=== PATIENT | female | born 1970 | race Asian ===

== ENCOUNTER → 2017-11-23 | Outpatient (REF) | payer OTHER ==
[2017-11-23 14:58] LABS: LUTEINIZING HORMONE 33.1 mIU/mL
[2017-11-23 14:59] LABS: ESTRADIOL 450.7 PG/ML
[2017-11-23 15:03] LABS: FOLLICLE STIMULATING HORMONE 26.8 mIU/mL
== END ==
LOC: M LAB REF 12:22
DX: N95.1 Menopausal and female climacteric states (principal)

== ENCOUNTER → 2017-12-31 | Outpatient (REF) | payer OTHER ==
[2018-01-03 00:06] LABS: CK 1 (BB) 0 % (0); CK 2 (MB) 0 % (0-3); CK 3 (MM) 22 % (97-100); CK MACRO I PERCENT 78 % (Not Observed); CK MACRO II PERCENT 0 % (Not Observed); CK TOTAL 350 U/L (24-173)
== END ==
LOC: M LAB REF 10:09
DX: R74.8 Abnormal levels of other serum enzymes (principal)
CPT/HCPCS: 82552

== ENCOUNTER → 2018-02-09 | Outpatient (CLI) | payer OTHER ==
[2018-02-09 15:14] LABS: MYOGLOBIN SCREEN, URINE NEGATIVE (NEGATIVE)
[2018-02-09 15:33] LABS: ERYTHROCYTE SEDIMENTATION RATE 7 mm/hr (0-20)
[2018-02-09 15:47] LABS: C REACTIVE PROTEIN QUANTITATIV 0.35 MG/DL (0.00-0.30); CPK CREATINE PHOSPHOKINASE 351 U/L (26-192); MAGNESIUM LEVEL 1.8 MG/DL (1.8-2.4)
[2018-02-09 15:47] LABS: PHOSPHORUS LEVEL 3.3 MG/DL (2.5-4.9)
== END ==
LOC: M LAB 14:32
DX: M72.2 Plantar fascial fibromatosis (principal); E03.9 Hypothyroidism, unspecified; E78.00 Pure hypercholesterolemia, unspecified; E83.42 Hypomagnesemia; R74.8 Abnormal levels of other serum enzymes; E87.1 Hypo-osmolality and hyponatremia
CPT/HCPCS: 82550

== ENCOUNTER → 2018-02-14 | Outpatient (CLI) | payer OTHER ==
[2018-02-14 19:56] LABS: ANION GAP 8 MEQ/L (8-16); BLOOD UREA NITROGEN 13 MG/DL (7-18); CALCIUM LEVEL 8.3 MG/DL (8.5-10.1); CARBON DIOXIDE LEVEL 26 MEQ/L (21-32); CHLORIDE LEVEL 101 MEQ/L (98-107); CREATININE FOR GFR 0.79 MG/DL (0.55-1.30); GLOMERULAR FILTRATION RATE > 60.0 (>58); GLUCOSE, FASTING 160 MG/DL (70-100); NT-PRO BNP 132 PG/ML (<125); SODIUM LEVEL 135 MEQ/L (136-145)
[2018-02-14 20:52] LABS: POTASSIUM SERUM 4.6 MEQ/L (3.5-5.1)
== END ==
LOC: M WUC 16:06
DX: R06.00 Dyspnea, unspecified (principal)

== ENCOUNTER → 2018-03-04 | Outpatient (CLI) | payer OTHER | LOC: M RAD 13:04 | DX: R51 Headache (principal) | CPT/HCPCS: 70450 ==

== ENCOUNTER → 2018-03-04 | Outpatient (CLI) | payer OTHER ==
[2018-03-04 17:55] LABS: BASO # 0.1 10^3/uL (0.0-0.2); BASO % 1.1 % (0.0-1.0); EOS # 0.2 10^3/uL (0.0-0.50); EOS % 2.6 % (0.0-3.0); HEMATOCRIT 42.1 % (36.0-47.0); HEMOGLOBIN 13.6 g/dl (12.0-15.5); IMMATURE GRANULOCYTE % 0.3 % (0-3.0); LYMPH # 2.2 10^3/uL (1.5-4.5); LYMPH % 30.1 % (24.0-44.0); MEAN CORPUSCULAR HEMOGLOBIN 30.6 pg (27.0-33.0); MEAN CORPUSCULAR HGB CONC 32.3 g/dl (32.0-36.5); MEAN CORPUSCULAR VOLUME 94.8 fl (80.0-96.0); MONO # 0.6 10^3/uL (0.0-0.8); MONO % 8.5 % (0.0-5.0); NEUTROPHILS # 4.2 10^3/uL (1.8-7.7); NEUTROPHILS % 57.4 % (36.0-66.0); PLATELET COUNT, AUTOMATED 233 10^3/uL (150-450); RED BLOOD COUNT 4.44 10^6/uL (4.00-5.40); RED CELL DISTRIBUTION WIDTH 12.9 % (11.5-14.5); WHITE BLOOD COUNT 7.3 10^3/uL (4.0-10.0)
[2018-03-04 18:06] LABS: ALBUMIN 3.9 GM/DL (3.2-5.2); ALKALINE PHOSPHATASE 56 U/L (45-117); ALT/SGPT 22 U/L (12-78); ANION GAP 9 MEQ/L (8-16); AST/SGOT 25 U/L (7-37); BILIRUBIN,TOTAL 0.4 MG/DL (0.2-1.0); BLOOD UREA NITROGEN 12 MG/DL (7-18); CALCIUM LEVEL 8.8 MG/DL (8.5-10.1); CARBON DIOXIDE LEVEL 24 MEQ/L (21-32); CHLORIDE LEVEL 103 MEQ/L (98-107); CREATININE FOR GFR 0.66 MG/DL (0.55-1.30); GLOMERULAR FILTRATION RATE > 60.0 (>58); GLUCOSE, FASTING 219 MG/DL (70-100); MAGNESIUM LEVEL 1.9 MG/DL (1.8-2.4); POTASSIUM SERUM 5.1 MEQ/L (3.5-5.1); SODIUM LEVEL 136 MEQ/L (136-145); TOTAL PROTEIN 7.8 GM/DL (6.4-8.2)
== END ==
LOC: M WUC 12:02
DX: R06.02 Shortness of breath (principal)
CPT/HCPCS: 83735

== ENCOUNTER → 2018-03-12 | Outpatient (CLI) | payer OTHER ==
[2018-03-12 19:45] LABS: CPK CREATINE PHOSPHOKINASE 249 U/L (26-192)
[2018-03-12 19:45] LABS: MAGNESIUM LEVEL 1.9 MG/DL (1.8-2.4)
== END ==
LOC: M WUC 16:01
DX: R74.8 Abnormal levels of other serum enzymes (principal); E87.1 Hypo-osmolality and hyponatremia; E83.42 Hypomagnesemia
CPT/HCPCS: 82550

== ENCOUNTER → 2018-06-25 | Outpatient (CLI) | payer OTHER ==
[2018-06-25 17:00] LABS: ALT/SGPT 19 U/L (12-78); ANION GAP 9 MEQ/L (8-16); BLOOD UREA NITROGEN 10 MG/DL (7-18); CALCIUM LEVEL 8.9 MG/DL (8.5-10.1); CARBON DIOXIDE LEVEL 26 MEQ/L (21-32); CHLORIDE LEVEL 101 MEQ/L (98-107); CHOLESTEROL LEVEL 188 MG/DL (<200); CHOLESTEROL RISK RATIO 1.579 (<5); CPK CREATINE PHOSPHOKINASE 275 U/L (26-192); CREATININE FOR GFR 0.57 MG/DL (0.55-1.30); GLOMERULAR FILTRATION RATE > 60.0 (>58); GLUCOSE, FASTING 90 MG/DL (70-100); HDL CHOLESTEROL 119 MG/DL (>40); LDL CHOLESTEROL 60.8 MG/DL (<100); NON-HDL-C 69 MG/DL; POTASSIUM SERUM 4.8 MEQ/L (3.5-5.1); SODIUM LEVEL 136 MEQ/L (136-145); THYROID STIMULATING HORMONE 0.609 uIU/ML (0.358-3.740); TRIGLYCERIDES LEVEL 41 MG/DL (<150)
== END ==
LOC: M WUC 11:14
DX: E03.9 Hypothyroidism, unspecified (principal); E83.42 Hypomagnesemia; E78.00 Pure hypercholesterolemia, unspecified
CPT/HCPCS: 84460

== ENCOUNTER → 2018-09-23 | Outpatient (CLI) | payer OTHER ==
[2018-09-23 12:53] LABS: BASO # 0.1 10^3/uL (0.0-0.2); BASO % 1.9 % (0.0-1.0); EOS # 0.4 10^3/uL (0.0-0.50); EOS % 7.3 % (0.0-3.0); HEMATOCRIT 37.9 % (36.0-47.0); HEMOGLOBIN 12.7 g/dl (12.0-15.5); IMMATURE GRANULOCYTE % 0.2 % (0-3.0); LYMPH # 2.7 10^3/uL (1.5-4.5); LYMPH % 46.2 % (24.0-44.0); MEAN CORPUSCULAR HEMOGLOBIN 30.6 pg (27.0-33.0); MEAN CORPUSCULAR HGB CONC 33.5 g/dl (32.0-36.5); MEAN CORPUSCULAR VOLUME 91.3 fl (80.0-96.0); MONO # 0.6 10^3/uL (0.0-0.8); NEUTROPHILS # 1.9 10^3/uL (1.8-7.7); NEUTROPHILS % 33.4 % (36.0-66.0); PLATELET COUNT, AUTOMATED 333 10^3/uL (150-450); RED BLOOD COUNT 4.15 10^6/uL (4.00-5.40); WHITE BLOOD COUNT 5.7 10^3/uL (4.0-10.0)
[2018-09-23 13:04] LABS: ALT/SGPT 14 U/L (12-78); ANION GAP 5 MEQ/L (8-16); BLOOD UREA NITROGEN 9 MG/DL (7-18); CALCIUM LEVEL 8.4 MG/DL (8.5-10.1); CARBON DIOXIDE LEVEL 29 MEQ/L (21-32); CHLORIDE LEVEL 105 MEQ/L (98-107); CHOLESTEROL LEVEL 168 MG/DL (<200); CHOLESTEROL RISK RATIO 1.731 (<5); CPK CREATINE PHOSPHOKINASE 210 U/L (26-192); CREATININE FOR GFR 0.63 MG/DL (0.55-1.30); GLOMERULAR FILTRATION RATE > 60.0 (>58); GLUCOSE, FASTING 73 MG/DL (70-100); HDL CHOLESTEROL 97 MG/DL (>40); LDL CHOLESTEROL 64 MG/DL (<100); NON-HDL-C 71 MG/DL; POTASSIUM SERUM 4.6 MEQ/L (3.5-5.1); SODIUM LEVEL 139 MEQ/L (136-145); TRIGLYCERIDES LEVEL 33 MG/DL (<150)
[2018-09-23 17:15] LABS: APPEARANCE, URINE CLEAR (CLEAR); BACTERIA, URINE AUTO NEGATIVE (NEGATIVE); BILIRUBIN, URINE AUTO NEGATIVE (NEGATIVE); BLOOD, URINE BLOOD NEGATIVE (NEGATIVE); COLOR, URINE STRAW (YELLOW); GLUCOSE, URINE (UA) AUTO 2+ mg/dL (NEGATIVE); KETONE, URINE AUTO NEGATIVE (NEGATIVE); LEUKOCYTE ESTERASE, URINE AUTO NEGATIVE (NEGATIVE); NITRITE, URINE AUTO NEGATIVE (NEGATIVE); PROTEIN, URINE AUTO NEGATIVE (NEGATIVE); RBC, URINE AUTO 0 /HPF (0-3); SPECIFIC GRAVITY URINE AUTO 1.006 (1.002-1.035); SQUAMOUS EPITHELIAL CELL UR AU 0 /HPF (0-6); UROBILINOGEN, URINE AUTO 0.2 mg/dL (0.0-2.0); WBC, URINE AUTO 0 /HPF (0-3)
[2018-09-23 17:36] LABS: CREATININE, URINE 21.6 MG/DL; MALB URINE SIEMENS < 5.0 MG/L; MAU/CREAT RATIO 23.1 MCG/MG (0.0-30.0)
== END ==
LOC: M WUC 09:39
DX: I10 Essential (primary) hypertension (principal); E78.00 Pure hypercholesterolemia, unspecified; E10.311 Type 1 diabetes mellitus with unspecified diabetic retinopathy with macular edema; R74.8 Abnormal levels of other serum enzymes; E03.9 Hypothyroidism, unspecified
CPT/HCPCS: 84460

== ENCOUNTER → 2018-10-29 | Outpatient (REF) ==
[2018-10-30 09:39] LABS: RUBELLA IgG QUALITATIVE IMMUNE (IMMUNE)
[2018-10-31 08:17] LABS: MUMPS VIRUS IgG ANTIBODY >300.0 AU/mL (Immune >10.9); RUBEOLA IgG ANTIBODY >300.0 AU/mL (Immune >29.9)
== END ==
LOC: M LAB REF 17:40
PROVIDERS: ATTEND Pediatrics Pediatric Infectious Diseases
DX: Z00.00 Encounter for general adult medical examination without abnormal findings (principal)

== ENCOUNTER 2018-11-28 08:49 | Emergency (ER) | payer OTHER ==
[~2018-11-28] VITALS: Ht 152.4 cm; Wt 49.5 kg
[2018-11-28] MEDS ORDERED: TURM500C3 PO (08:59)
[2018-11-28] MEDS ORDERED: VITA100066 PO (08:59)
[2018-11-28] MEDS ORDERED: PHEN64.8 (08:59)
[2018-11-28] MEDS ORDERED: LEVO150T7 (08:59)
[2018-11-28] MEDS ORDERED: METO1TAB32 (08:59)
[2018-11-28] MEDS ORDERED: MAGN400C2 PO (08:59)
[2018-11-28] MEDS ORDERED: AMLO2.5T3 (08:59)
[2018-11-28] MEDS ORDERED: ROSU5TAB4 (08:59)
[2018-11-28] MEDS ORDERED: RAMI1CAP26 (08:59)
[2018-11-28] MEDS ORDERED: INSUHUMDS (08:59)
[2018-11-28 12:15] LABS: HEMATOCRIT 41.7 % (36.0-47.0); HEMOGLOBIN 13.9 g/dl (12.0-15.5); MEAN CORPUSCULAR HGB CONC 33.3 g/dl (32.0-36.5); MEAN CORPUSCULAR VOLUME 92.9 fl (80.0-96.0); PLATELET COUNT, AUTOMATED 269 10^3/uL (150-450); RED BLOOD COUNT 4.49 10^6/uL (4.00-5.40); WHITE BLOOD COUNT 7.4 10^3/uL (4.0-10.0)
[2018-11-28 12:51] LABS: BLOOD UREA NITROGEN 13 MG/DL (7-18); CALCIUM LEVEL 8.8 MG/DL (8.5-10.1); CARBON DIOXIDE LEVEL 27 MEQ/L (21-32); CHLORIDE LEVEL 102 MEQ/L (98-107); CREATININE FOR GFR 0.61 MG/DL (0.55-1.30); GLOMERULAR FILTRATION RATE > 60.0 (>58); GLUCOSE, FASTING 107 MG/DL (70-100); POTASSIUM SERUM 4.7 MEQ/L (3.5-5.1); SODIUM LEVEL 136 MEQ/L (136-145)
[2018-11-28] MEDS ORDERED: ISOVUE-370 76% 100ML VIAL (Q9967) As Ordered ONE (13:03)
[2018-11-28 13:46] VITALS: BP 150/89
[2018-11-28] MEDS ORDERED: AUGM875T28 PO (13:53)
--- NOTE | 2018-11-28 14:33 | REP ---
MAXILLOFACIAL CT WITH CONTRAST: HISTORY: Left facial swelling. CONTRAST: Isovue-370, 75 mL. COMPARISON: 08/17/2014 Mild mucosal thickening is present in the maxillary, right ethmoid, and right sphenoid sinuses. Minimal mucosal thickening is present in the frontal, left ethmoid, and left sphenoid sinuses. A retention cyst is present in the right maxillary sinus. Mucosal thickening involves the osteomeatal units. The middle and inferior nasal turbinates are partially paradoxical. There is veronica bullosa of the right middle nasal turbinate. There is mild deviation of the nasal septum to the left superiorly and to the right inferiorly. The superior nasal septum abuts the left middle nasal turbinate. The cribriform plate, medial coello of the orbits, and optic canals are intact. The carotid canals form a segment of the posterolateral coello of the sphenoid sinus. Calcifications are present in the right tonsil. This is secondary to previous inflammatory disease. The naso-, peng-, and hypopharynx otherwise are normal in appearance. The salivary glands are normal in size and density. Small lymph nodes less than 1 cm in size are present in the internal jugular chains, posterior triangles, submandibular and submental areas. There is flattening and irregularity of the left mandibular condyle. This is unchanged compared to the previous study. The right mandibular condyle is normal in appearance. IMPRESSION: 1. Sinus mucosal thickening, as described above. 2. Left mandibular condyle degenerative change, as described above. Electronically Signed by Ced Rico MD 11/28/2018 02:36 P
== END 2018-11-28 14:04 | disposition home or self-care (01) ==
LOC: M ED 08:49
DX: J01.90 Acute sinusitis, unspecified (principal); E11.9 Type 2 diabetes mellitus without complications; I10 Essential (primary) hypertension; Z79.4 Long term (current) use of insulin; Z79.899 Other long term (current) drug therapy
CPT/HCPCS: 70487; 80048; 85027; 99284; Q9967

== ENCOUNTER → 2018-12-04 | Outpatient (CLI) | payer OTHER ==
[~2018-12-04] MED LIST: AMLO2.5T3; AUGM875T28 PO; INSUHUMDS; LEVO150T7; MAGN400C2 PO; METO1TAB32; PHEN64.8; RAMI1CAP26; ROSU5TAB4; TURM500C3 PO; VITA100066 PO
--- NOTE | 2018-12-04 17:45 | REP ---
CT of the chest without IV contrast: There are no comparison chest CTs. Comparison is made to the visualized lung rudolph and abdominal CT dated 03/29/2015. There is diffuse bilateral interstitial coarsening as a distinct change from the comparison study. This could represent acute, subacute or chronic diffuse interstitial lung disease. There are no focal infiltrates. No definite masses or nodules are identified although small nodules could be obscured. There are no pleural effusions. No definite mediastinal adenopathy is identified. The study is insensitive for hilar adenopathy in the absence of IV contrast. No axillary adenopathy is identified. The unenhanced thoracic aorta is unremarkable. Cardiac size is upper normal. There is no pericardial effusion. The visualized unenhanced upper abdominal structures are unremarkable. No adrenal mass is identified. Impression: The diffuse bilateral interstitial coarsening as a change from the visualized lung rudolph on the abdomen CT of 03/29/2015. This could represent acute, subacute or idiopathic interstitial lung disease. Depending on clinical course biopsy may be altered mentally required. Electronically Signed by Jus Ward MD 12/04/2018 05:37 P
== END ==
LOC: M RAD 15:27
PROVIDERS: ATTEND Internal Medicine Pulmonary Disease
DX: R06.00 Dyspnea, unspecified (principal); R91.8 Other nonspecific abnormal finding of lung field

== ENCOUNTER → 2018-12-09 | Outpatient (CLI) | payer OTHER ==
[2018-12-12 00:06] LABS: ANGIOTENSIN 1 CONVERTING ENZYM 7 U/L (14-82); CYCLIC CITRULLINATED PEPTIDE 4 units (0-19)
[2018-12-13 00:08] LABS: ANCA-ATYPICAL <1:20 titer (Neg:<1:20); ANTI DOUBLE STRAND-DNA AB 1 IU/mL (0-9); ANTINUCLEAR ANTIBODIES DIRECT Positive (Negative); CYTOPLASMIC NEUTROP AB ANCA-C <1:20 titer (Neg:<1:20); PERINUCLEAR AB ANCA-P <1:20 titer (Neg:<1:20); RNP ANTIBODIES <0.2 AI (0.0-0.9); SJOGREN'S ANTI SS-A 0.6 AI (0.0-0.9); SJOGREN'S ANTI SS-B <0.2 AI (0.0-0.9); SMITH ANTIBODIES <0.2 AI (0.0-0.9)
== END ==
LOC: M SMT 15:29
PROVIDERS: ATTEND Internal Medicine Pulmonary Disease
DX: R91.8 Other nonspecific abnormal finding of lung field (principal)

== ENCOUNTER → 2019-02-22 | Outpatient (CLI) | payer OTHER ==
[2019-02-22 18:00] LABS: HEMATOCRIT 39.5 % (36.0-47.0); MEAN CORPUSCULAR HEMOGLOBIN 30.8 pg (27.0-33.0); MEAN CORPUSCULAR HGB CONC 32.9 g/dl (32.0-36.5); MEAN CORPUSCULAR VOLUME 93.6 fl (80.0-96.0); PLATELET COUNT, AUTOMATED 232 10^3/uL (150-450); RED BLOOD COUNT 4.22 10^6/uL (4.00-5.40); WHITE BLOOD COUNT 6.7 10^3/uL (4.0-10.0)
[2019-02-22 18:03] LABS: APPEARANCE, URINE CLEAR (CLEAR); BACTERIA, URINE AUTO NEGATIVE (NEGATIVE); BILIRUBIN, URINE AUTO NEGATIVE (NEGATIVE); BLOOD, URINE BLOOD NEGATIVE (NEGATIVE); COLOR, URINE COLORLESS (YELLOW); GLUCOSE, URINE (UA) AUTO NEGATIVE (NEGATIVE); KETONE, URINE AUTO NEGATIVE (NEGATIVE); LEUKOCYTE ESTERASE, URINE AUTO NEGATIVE (NEGATIVE); NITRITE, URINE AUTO NEGATIVE (NEGATIVE); PROTEIN, URINE AUTO NEGATIVE (NEGATIVE); RBC, URINE AUTO 0 /HPF (0-3); SPECIFIC GRAVITY URINE AUTO 1.002 (1.002-1.035); SQUAMOUS EPITHELIAL CELL UR AU 0 /HPF (0-6); UROBILINOGEN, URINE AUTO 0.2 mg/dL (0.0-2.0); WBC, URINE AUTO 0 /HPF (0-3)
[2019-02-22 18:05] LABS: ALBUMIN 3.8 GM/DL (3.2-5.2); ALT/SGPT 14 U/L (12-78); BILIRUBIN,DIRECT < 0.1 MG/DL (0.0-0.2); BILIRUBIN,TOTAL 0.3 MG/DL (0.2-1.0); CPK CREATINE PHOSPHOKINASE 202 U/L (26-192); MAGNESIUM LEVEL 1.9 MG/DL (1.8-2.4); TOTAL PROTEIN 7.6 GM/DL (6.4-8.2)
[2019-02-22 18:20] LABS: CREATININE, URINE < 13.0 MG/DL; MALB URINE SIEMENS < 5.0 MG/L
== END ==
LOC: M WUC 13:10
PROVIDERS: ATTEND Internal Medicine
DX: Z00.00 Encounter for general adult medical examination without abnormal findings (principal); Z13.89 Encounter for screening for other disorder; E03.9 Hypothyroidism, unspecified

== ENCOUNTER → 2019-02-28 | Outpatient (CLI) | payer OTHER ==
[~2019-02-28] MED LIST changes: -AMLO2.5T3; +AMLO2.5T3 PO; -LEVO150T7; +LEVO150T7 PO; +LOES1TAB10 PO; -METO1TAB32; +METO1TAB32 PO; -PHEN64.8; +PHEN64.8 PO; -RAMI1CAP26; +RAMI1CAP26 PO; -ROSU5TAB4; +ROSU5TAB4 PO; +VITA500054 PO
[2019-02-28 13:32] LABS: ABG BASE EXCESS 1.8 (-2.0-2.0); ABG HCO3 25.4 MEQ/L (22.0-26.0); ABG PARTIAL PRESSURE CO2 36.6 mmHg (35.0-45.0); ABG PARTIAL PRESSURE O2 144.4 mmHg (75.0-100.0); ABG STANDARD HCO3 26.1 MEQ/L (22.0-26.0); ABG TOTAL CO2 26.6 MEQ/L (22.0-29.0)
[2019-02-28 13:35] LABS: HEMATOCRIT 40.5 % (36.0-47.0); HEMOGLOBIN 13.2 g/dl (12.0-15.5); MEAN CORPUSCULAR HEMOGLOBIN 30.5 pg (27.0-33.0); MEAN CORPUSCULAR HGB CONC 32.6 g/dl (32.0-36.5); MEAN CORPUSCULAR VOLUME 93.5 fl (80.0-96.0); PLATELET COUNT, AUTOMATED 245 10^3/uL (150-450); RED BLOOD COUNT 4.33 10^6/uL (4.00-5.40); WHITE BLOOD COUNT 7.3 10^3/uL (4.0-10.0)
[2019-02-28 13:46] LABS: INR 0.93; PARTIAL THROMBOPLASTIN TIME 29.2 SECONDS (25.4-37.6); PROTHROMBIN TIME 12.6 SECONDS (12.1-14.4)
[2019-02-28 14:04] LABS: BLOOD UREA NITROGEN 11 MG/DL (7-18); CALCIUM LEVEL 8.6 MG/DL (8.5-10.1); CARBON DIOXIDE LEVEL 29 MEQ/L (21-32); CHLORIDE LEVEL 102 MEQ/L (98-107); CREATININE FOR GFR 0.59 MG/DL (0.55-1.30); GLOMERULAR FILTRATION RATE > 60.0 (>58); GLUCOSE, FASTING 116 MG/DL (70-100); POTASSIUM SERUM 3.8 MEQ/L (3.5-5.1); SODIUM LEVEL 135 MEQ/L (136-145)
--- NOTE | 2019-02-28 16:24 | REP ---
REASON FOR EXAM: Dyspnea. COMPARISON EXAM: 02/13/[address] of the chest 12/04/2018 showed abnormal lug rudolph. There is a diffuse increase in the interstitial markings throughout the lung rudolph and in a fashion essentially unchanged from the prior plain film exam. The cardiomediastinal silhouette is unchanged. There is no cardiomegaly. There are no pleural effusions. There is no change in the osseous structures. IMPRESSION:Abnormal but stable appearing lung field findings as described above. Electronically Signed by Eddi Mejía DO 03/06/2019 02:36 P
--- NOTE | 2019-02-28 23:57 | ECGEPIP ---
Stationary ECG Study [facility] Test Date: 2019-02-28 Pat Name: JAKE PULIDO Department: Room: - Gender: F Educational Specialist: : 1970 Requested By: Carlos Enrique White Order Number: [id number] Reading MD: Thomas King Measurements Intervals [place] Rate: 75 P: 48 [place]: 156 QRS: 19 QRSD: 94 T: 29 QT: 355 QTc: 396 Interpretive Statements SINUS RHYTHM NO PRIOR TRACING IN THE SYSTEM Electronically Signed On 02-28-2019 23:57:10 EDT by Thomas King
== END ==
LOC: M ADMPAT 12:53
PROVIDERS: ATTEND Thoracic Surgery (Cardiothoracic Vascular Surgery)
DX: R91.1 Solitary pulmonary nodule (principal)

== ENCOUNTER → 2019-03-07 | Outpatient (CLI) | payer OTHER ==
[~2019-03-07] MED LIST changes: +E-Z-PAQUE 96% w/w SUSP 176GM BTL As Ordered ONE
--- NOTE | 2019-03-07 17:26 | REP ---
Esophagram The procedure was performed under the direct supervision of Dr. Ahuja. The images were reviewed with Dr. Ahuja. A single view PA chest x-ray is submitted as a production team manager film. There is no change compared to a previous chest x-ray performed on 02/28/2019. Liquid barium and gas producing granules were given in the erect position as well as liquid barium in the prone oblique positions in order to perform a double contrast esophagram examination. The oral and pharyngeal stages of deglutition are unremarkable. During esophageal transport the primary peristaltic wave is interrupted in the upper thoracic esophagus. The esophagus is dilated. There is free flow of contrast into the stomach. The GE junction is normal in appearance. There is gastroesophageal reflux demonstrated to above the level of the marco. Impression: 1. During esophageal transport the primary peristaltic wave interrupted in the upper thoracic esophagus. 2. The esophagus is dilated. There is free flow of contrast into the stomach. The GE junction is normal in appearance. 3. There is gastroesophageal reflux demonstrated to above the level of the marco. 0.5 minutes of fluoro time was utilized for this procedure. Reviewed by PARVIN Hunter 03/07/2019 01:24 P Electronically Signed by Perez Ahuja MD 03/07/2019 05:17 P
== END ==
LOC: M RAD 09:52
PROVIDERS: ATTEND Thoracic Surgery (Cardiothoracic Vascular Surgery)
DX: K22.0 Achalasia of cardia (principal); K21.9 Gastro-esophageal reflux disease without esophagitis

== ENCOUNTER → 2019-05-20 | Outpatient (CLI) | payer OTHER ==
[~2019-05-20] MED LIST changes: -E-Z-PAQUE 96% w/w SUSP 176GM BTL As Ordered ONE; -ROSU5TAB4 PO; +ROSU5TAB5 PO
--- NOTE | 2019-05-20 08:15 | REP ---
Clinical: Interstitial pulmonary disease. Technique: Axial noncontrast high-resolution images from the thoracic inlet to the upper abdomen obtained during inspiration and expiration along with coronal and sagittal re-formations. Comparison: 03/29/2015. Findings: There is evidence for moderate diffuse interstitial coarsening throughout the bilateral lung rudolph with a subpleural predominance and changes to suggest early subpleural fibrosis. Expiration images demonstrate small areas of subpleural atelectasis primarily in the bilateral lung bases without evidence for air trapping. No obvious focal consolidation or mass lesion is appreciated. The tracheobronchial tree is patent. There is continued evidence for a moderately patulous esophagus and these findings together may be related to Systemic Sclerosis interstitial lung disease (SSc-ILD). No effusion. No pneumothorax. Evaluation for adenopathy is significantly limited due to the lack of contrast. The heart and pericardium are grossly normal. No pericardial effusion is identified. The thoracic aorta is without aneurysm. Surrounding musculoskeletal structures are intact. Impression: 1. Diffusely coarsened interstitial markings with early subpleural predominance and possible elements of fibrosis. A patulous esophagus is also identified together these findings suggest the possibility of SSc-ILD. Pulmonary consultation is recommended. Biopsy may be warranted. Electronically Signed by Giovanni Grullon MD 05/20/2019 08:08 A
== END ==
LOC: M RAD 07:33
PROVIDERS: ATTEND Thoracic Surgery (Cardiothoracic Vascular Surgery)
DX: J84.9 Interstitial pulmonary disease, unspecified (principal); R91.8 Other nonspecific abnormal finding of lung field

== ENCOUNTER → 2019-07-31 | Outpatient (CLI) | payer OTHER ==
[2019-08-02 14:07] LABS: ANTI DOUBLE STRAND-DNA AB <1 IU/mL (0-9); ANTI SCLERODERMA ANTIBODIES <0.2 AI (0.0-0.9); ANTINUCLEAR ANTIBODIES DIRECT Positive (Negative); RNP ANTIBODIES <0.2 AI (0.0-0.9); SJOGREN'S ANTI SS-A 0.4 AI (0.0-0.9); SJOGREN'S ANTI SS-B <0.2 AI (0.0-0.9); SMITH ANTIBODIES <0.2 AI (0.0-0.9)
== END ==
LOC: M WUC 16:29
PROVIDERS: ATTEND Internal Medicine Gastroenterology
DX: K22.4 Dyskinesia of esophagus (principal); K22.70 Barrett's esophagus without dysplasia; K44.9 Diaphragmatic hernia without obstruction or gangrene

== ENCOUNTER → 2019-08-07 | Outpatient (CLI) | payer OTHER ==
[~2019-08-07] MED LIST changes: +PERCOCET PO
--- NOTE | 2019-08-28 16:30 | REP ---
CT chest without contrast: High-resolution study. Repeat dictation. History: Interstitial pulmonary disease. Inspiration and expiration imaging requested supine and prone imaging. Comparison CT study is from May 20, 2019. Technique: Prone and supine high resolution CT imaging is acquired. Supine imaging is performed at both inspiration and expiration. CT findings: Somewhat dilated air filled esophagus is again seen. No mediastinal mass or adenopathy is observed. Minimal vascular calcification is noted. No adrenal lesion is seen. The visualized upper abdominal structures are unremarkable. There is diffuse interstitial fibrosis pattern in the lung rudolph with areas of subpleural interstitial fibrosis in the upper lobe anterolaterally and in the lower lobes posterolaterally on both sides essentially unchanged from the May 20, 2019 study. With expiration imaging there is no regional or segmental area of significant air trapping. The subpleural changes in the lower lobes are not due to dependent vascular changes. In other words, the persist with prone imaging. No pulmonary mass lesion is seen. No bony destructive lesion is appreciated. No endobronchial abnormality is seen. Impression: Diffuse interstitial lung disease with subpleural areas of fibrosis in the upper lobes and lower lobes bilaterally. The changes are not dependent. No significant air trapping is seen. Electronically Signed by Perez Ahuja MD 08/28/2019 05:15 P
== END ==
LOC: M RAD 16:12
PROVIDERS: ATTEND Thoracic Surgery (Cardiothoracic Vascular Surgery)
DX: J84.10 Pulmonary fibrosis, unspecified (principal)

== ENCOUNTER → 2019-08-08 | Outpatient (CLI) | payer OTHER ==
[2019-08-08 13:46] LABS: HEMATOCRIT 40.3 % (36.0-47.0); HEMOGLOBIN 13.4 g/dl (12.0-15.5); MEAN CORPUSCULAR HEMOGLOBIN 31.4 pg (27.0-33.0); MEAN CORPUSCULAR HGB CONC 33.3 g/dl (32.0-36.5); MEAN CORPUSCULAR VOLUME 94.4 fl (80.0-96.0); PLATELET COUNT, AUTOMATED 262 10^3/uL (150-450); RED BLOOD COUNT 4.27 10^6/uL (4.00-5.40); WHITE BLOOD COUNT 6.1 10^3/uL (4.0-10.0)
[2019-08-08 13:51] LABS: APPEARANCE, URINE CLEAR (CLEAR); BACTERIA, URINE AUTO NEGATIVE (NEGATIVE); BILIRUBIN, URINE AUTO NEGATIVE (NEGATIVE); BLOOD, URINE BLOOD 2+ (NEGATIVE); COLOR, URINE COLORLESS (YELLOW); GLUCOSE, URINE (UA) AUTO NEGATIVE (NEGATIVE); KETONE, URINE AUTO NEGATIVE (NEGATIVE); LEUKOCYTE ESTERASE, URINE AUTO NEGATIVE (NEGATIVE); MUCUS, URINE SMALL (NEGATIVE); NITRITE, URINE AUTO NEGATIVE (NEGATIVE); PROTEIN, URINE AUTO NEGATIVE (NEGATIVE); RBC, URINE AUTO 0 /HPF (0-3); SPECIFIC GRAVITY URINE AUTO 1.001 (1.002-1.035); SQUAMOUS EPITHELIAL CELL UR AU 1 /HPF (0-6); UROBILINOGEN, URINE AUTO 0.2 mg/dL (0.0-2.0); WBC, URINE AUTO 0 /HPF (0-3)
[2019-08-08 14:00] LABS: INR 1.06; PROTHROMBIN TIME 13.5 SECONDS (11.8-14.0)
[2019-08-08 14:01] LABS: PARTIAL THROMBOPLASTIN TIME 28.2 SECONDS (25.0-38.4)
[2019-08-08 14:04] LABS: BLOOD UREA NITROGEN 6 MG/DL (7-18); CARBON DIOXIDE LEVEL 28 MEQ/L (21-32); CHLORIDE LEVEL 102 MEQ/L (98-107); CREATININE FOR GFR 0.61 MG/DL (0.55-1.30); GLOMERULAR FILTRATION RATE > 60.0 (>58); GLUCOSE, FASTING 80 MG/DL (70-100); POTASSIUM SERUM 3.4 MEQ/L (3.5-5.1); SODIUM LEVEL 136 MEQ/L (136-145)
[2019-08-08 14:15] LABS: ABG BASE EXCESS 0.6 (-2.0-2.0); ABG HCO3 24.5 MEQ/L (22.0-26.0); ABG O2 SATURATION 98.4 % (95.0-99.0); ABG PARTIAL PRESSURE CO2 36.9 mmHg (35.0-45.0); ABG PARTIAL PRESSURE O2 126.3 mmHg (75.0-100.0); ABG STANDARD HCO3 25.1 MEQ/L (22.0-26.0); ABG TOTAL CO2 25.6 MEQ/L (22.0-29.0)
--- NOTE | 2019-08-08 15:24 | ECGEPIP ---
[facility] Test Date: 2019-08-08 Pat Name: JAKE PULIDO Department: Room: - Gender: Female [employer] Kil[employer] Operator: DEBBIE : 1970 Requested By: Carlos Enrique White Order Number: [id number] Reading MD: Emma Redd Measurements Intervals [place] Rate: 68 P: 49 [place]: 154 QRS: 21 QRSD: 96 T: 14 QT: 390 QTc: 415 Interpretive Statements SINUS RHYTHM sIMILAR TO 02/28/19 Electronically Signed on 08-08-2019 15:24:20 EDT by Emma Redd
--- NOTE | 2019-08-08 16:47 | REP ---
Chest x-ray: Two views. History: Interstitial lung disease. Comparison chest x-ray: February 28, 2019. Comparison chest CT study August 07, 2019. Findings: Interstitial markings are diffusely prominent as seen on the previous day's chest CT. Cardiomediastinal silhouette is unremarkable. No focal infiltrate is seen. Heart size is borderline. Cardiothoracic ratio is 52.3%. No pleural effusion is seen. Impression: Diffuse interstitial lung disease. Electronically Signed by Perez Ahuja MD 08/08/2019 04:38 P
== END ==
LOC: M ADMPAT 13:01
PROVIDERS: ATTEND Thoracic Surgery (Cardiothoracic Vascular Surgery)
DX: J84.9 Interstitial pulmonary disease, unspecified (principal)

== ENCOUNTER 2019-08-12 06:46 | Inpatient (IN) | payer OTHER ==
[2019-08-08 13:38] VITALS: BP 180/84
[~2019-08-12] VITALS: Ht 149.9 cm; Wt 50.6 kg
[2019-08-12] VITALS (19 sets, daily range): BP systolic 96–153; BP diastolic 44–76
[~2019-08-12 06:46] MED LIST changes: -PERCOCET PO
[2019-08-12] MEDS ORDERED: PROPOFOL 200 MG/20 ML VIAL As Ordered ONE (07:10)
[2019-08-12] MEDS ORDERED: ROCURONIUM BROMIDE 50 MG/5 ML VIAL As Ordered ONE ×3 (07:10→12:20)
[2019-08-12] MEDS ORDERED: LIDOCAINE 2% INJ 100 MG/5 ML SDV (FOR ANES.) As Ordered ONE (07:10)
[2019-08-12] MEDS ORDERED: ONDANSETRON 4MG/2ML VIAL (J2405) As Ordered ONE (07:10)
[2019-08-12] MEDS ORDERED: dexameTHASONE 4 MG/ML 1ML VIAL (J1100) As Ordered ONE (07:10)
[2019-08-12] MEDS ORDERED: fentaNYL 250 MCG/5 ML INJECTION (J3010) As Ordered ONE (07:16)
[2019-08-12] MEDS ORDERED: ceFAZolin SOD 2 GM in IV 1 EA IV ONE (07:45)
[2019-08-12] MEDS ORDERED: MUPIROCIN 2% OINT 22 GM TUBE TOP ONE (07:45)
[2019-08-12] MEDS ORDERED: fentaNYL 100 MCG/2 ML INJECTION (J3010) As Ordered ONE (08:57)
[2019-08-12] MEDS ORDERED: MIDAZOLAM INJ 2 MG/2 ML VIAL (J2250) As Ordered ONE (08:57)
[2019-08-12] MEDS ORDERED: BUPIVACAINE HCL 0.25% 30 ML VIAL As Ordered ONE (09:45)
[2019-08-12] MEDS ORDERED: CETACAINE SPRAY 5GM As Ordered ONE ×3 (09:49→14:19)
[2019-08-12] MEDS ORDERED: BUPIVACAINE HCL 0.5% 10 ML VIAL As Ordered ONE (09:49)
[2019-08-12] MEDS ORDERED: BUPIVACAINE LIPOSOME/PF 1.3% 20ML VIAL (13.3MG/ML)(EXPAREL)(C9290 PER1MG) As Ordered ONE (09:49)
[2019-08-12] MEDS ORDERED: WALLBOXKEY XX PRN (10:00)
[2019-08-12] MEDS ORDERED: ONDANSETRON 4MG/2ML VIAL (J2405) IV PRN ×3 (10:00→14:00)
[2019-08-12] MEDS ORDERED: EPIDURAL/PCA KEYS XX PRN (10:00)
[2019-08-12] MEDS ORDERED: METOCLOPRAMIDE INJ 10MG/2ML VIAL (J2765) IV PRN (10:00)
[2019-08-12] MEDS ORDERED: NALOXONE INJ 0.4 MG/1 ML VIAL (J2310) IV PRN (10:00)
[2019-08-12] MEDS ORDERED: diphenhydrAMINE INJ 50MG/ML VIAL (J1200) IV PRN (10:00)
[2019-08-12] MEDS ORDERED: MIDAZOLAM INJ 2 MG/2 ML VIAL (J2250) IV ONE (10:30)
[2019-08-12] MEDS ORDERED: fentaNYL 100 MCG/2 ML INJECTION (J3010) IV ONE (10:30)
[2019-08-12] MEDS ORDERED: SUGAMMADEX SODIUM 500 MG/5 ML VIAL (BRIDION) As Ordered ONE (12:15)
[2019-08-12] MEDS ORDERED: GLYCOPYRROLATE INJ 0.2 MG/ML 2 ML VIAL As Ordered ONE (12:48)
[2019-08-12] MEDS ORDERED: KETOROLAC 60 MG/2 ML VIAL (J1885) As Ordered ONE (13:05)
[2019-08-12] MEDS ORDERED: ACETAMINOPHEN 1000MG 100ML IV BTL (OFIRMEV) (J0131 PER 10MG) As Ordered ONE (13:08)
[2019-08-12] MEDS ORDERED: BISACODYL 10 MG SUPP PR PRN (13:30)
[2019-08-12] MEDS ORDERED: LEVALBUTEROL 1.25 MG/0.5 ML CONCENTRATE NEB NEB PRN (13:30)
[2019-08-12] MEDS ORDERED: ACETAMINOPHEN TAB 650MG DOSE (2X325MG) PO PRN (13:30)
[2019-08-12 13:53] LABS: ABG BASE EXCESS 0.4 (-2.0-2.0); ABG HCO3 26.5 MEQ/L (22.0-26.0); ABG O2 SATURATION 99.3 % (95.0-99.0); ABG PARTIAL PRESSURE CO2 48.6 mmHg (35.0-45.0); ABG PARTIAL PRESSURE O2 181.5 mmHg (75.0-100.0); ABG STANDARD HCO3 24.9 MEQ/L (22.0-26.0); ABG pH (ARTERIAL) 7.355 UNITS (7.350-7.450)
[2019-08-12 13:57] LABS: BASO % 0.4 % (0.0-1.0); EOS # 0.1 10^3/uL (0.0-0.5); EOS % 0.6 % (0.0-3.0); HEMATOCRIT 38.2 % (36.0-47.0); HEMOGLOBIN 12.9 g/dl (12.0-15.5); LYMPH # 0.9 10^3/uL (1.5-5.0); LYMPH % 8.4 % (24.0-44.0); MEAN CORPUSCULAR HEMOGLOBIN 31.5 pg (27.0-33.0); MEAN CORPUSCULAR HGB CONC 33.8 g/dl (32.0-36.5); MEAN CORPUSCULAR VOLUME 93.4 fl (80.0-96.0); MONO # 0.2 10^3/uL (0.0-0.8); MONO % 1.9 % (0.0-5.0); NEUTROPHILS # 9.3 10^3/uL (1.5-8.5); NEUTROPHILS % 88.2 % (36.0-66.0); PLATELET COUNT, AUTOMATED 239 10^3/uL (150-450); RED BLOOD COUNT 4.09 10^6/uL (4.00-5.40); WHITE BLOOD COUNT 10.6 10^3/uL (4.0-10.0)
[2019-08-12] MEDS ORDERED: DEXTROSE 50% 50 ML SYRINGE IV PRN (14:00)
[2019-08-12] MEDS ORDERED: GLUCOSE 4 GM CHEW TABLET PO PRN (14:00)
[2019-08-12] MEDS ORDERED: LR 1,000 ML IV SCH (14:00)
[2019-08-12] MEDS ORDERED: HumaLOG INSULIN (NovoLOG) PER UNIT SC SCH (14:00)
[2019-08-12] MEDS ORDERED: GLUCAGON FOR INJ 1 MG VIAL (J1610) SC PRN (14:00)
[2019-08-12] MEDS: LEVALBUTEROL 1.25 MG/0.5 ML CONCENTRATE NEB NEB SCH ×2 (14:00→20:34)
[2019-08-12] MEDS: fentaNYL 100 MCG/2 ML INJECTION (J3010) IV PRN ×2 (14:05→14:15)
[2019-08-12] MEDS: KCL 20MEQ IN D5/NS 1000ML 1,000 ML IV SCH (14:10)
[2019-08-12 14:26] LABS: BLOOD UREA NITROGEN 7 MG/DL (7-18); CALCIUM LEVEL 8.4 MG/DL (8.5-10.1); CARBON DIOXIDE LEVEL 29 MEQ/L (21-32); CHLORIDE LEVEL 100 MEQ/L (98-107); CREATININE FOR GFR 0.61 MG/DL (0.55-1.30); GLOMERULAR FILTRATION RATE > 60.0 (>58); GLUCOSE, FASTING 223 MG/DL (70-100); POTASSIUM SERUM 4.7 MEQ/L (3.5-5.1); SODIUM LEVEL 134 MEQ/L (136-145)
--- NOTE | 2019-08-12 14:26 | RO ---
DATE OF PROCEDURE: 08/12/2019 PREPROCEDURE DIAGNOSIS: Interstitial lung disease. POSTPROCEDURE DIAGNOSIS: Interstitial lung disease. PROCEDURE: Triple wedge resection of right middle, right lower and right upper lobe with video-assisted thoracoscopic surgery (VATS) technique. Bronchoscopy. Five level rib block. SURGEON: Carlos Enriqeu Lam MD ASBESTOS SHINGLE ROOFER: ANESTHESIA: FINDINGS: The right lower lobe had a particularly impressive cobblestone appearance. A portion of the middle lobe was also the same. Upper lobe was less, cobblestone was still present. It was a difficult intubation and we used bronchial block rather than a double lumen tube. PROCEDURE: Under satisfactory single lumen tube endotracheal intubation, bronchoscope was passed into the tracheobronchial tree. She had normal bronchial segmental anatomy. She had high takeoff of the right upper lobe from the right mainstem bronchus. A port incision in the mid axillary line, the approximate sixth intercostal space was undertaken and a port placed under insufflation. There were no adhesions to the chest wall. The fissures were complete and after inspecting the lung, two other ports were placed. I placed an epigastric but I could not get above the diaphragm to safely place the port. The lower lobe was first visualized and the costophrenic angle portion was seized and wedge resection done with FANTA [place] stapler. The same was done likewise from the middle lobe and the upper lobe. The specimens were split and each lobe was sent for bacteriology including aerobic, anaerobic, fungal and TB. The remainder were sent for pathologic microscopy. After achieving adequate hemostasis a #24 chest tube was placed apically and anteriorly. The incisions were closed with running #0 Vicryl suture for the extrathoracic muscles, #3-0 Vicryl suture for the subcutaneous tissue and #4-0 Monocryl subcutaneous tissue sutures for the skin. Likewise, the epigastric incision was closed in the same fashion. A five level rib block was performed with Exparel. The patient tolerated the procedure well and left the operating room in satisfactory condition for the recovery room.
[2019-08-12] MEDS: FENTANYL/BUPIVACAINE/NACL BAG 250 ML EPIDURAL SCH (15:35)
--- NOTE | 2019-08-12 15:49 | REP ---
Single view chest: 08/12/2019. Indication: Interstitial lung disease. Comparison: 08/08/2019. Findings: There is been interval placement of a right-sided chest tube. There is no pleural effusion or pneumothorax. Interstitial markings are more prominent. The cardiac silhouette is at the upper limits of normal. Patchy bilateral opacities are present which appear within the air spaces and likely represent focal pneumonitis or infection. Impression: Interval placement of a right-sided chest tube without pneumothorax. Increased interstitial markings suggestive of pulmonary edema as well as possible superimposed pneumonitis/pneumonia. Electronically Signed by Luís Edwards DO 08/12/2019 03:42 P
[2019-08-12] MEDS: HumaLOG INSULIN (NovoLOG) PER UNIT SC SCH (18:00)
[2019-08-12] MEDS: KETOROLAC 30 MG/ML VIAL (J1885) IV SCH (18:40)
[2019-08-12] MEDS: HEPARIN SOD (PORCINE) 5000 UNITS/ML VIAL SC SCH (21:57)
[2019-08-12] MEDS: DOCUSATE SODIUM 100 MG CAP PO SCH (21:57)
[2019-08-12] MEDS ORDERED: INFLUENZA QUADRIVALENT PF VACCINE 0.5ML SYRINGE (90686) IM SCH (23:15)
[2019-08-13] VITALS (14 sets, daily range): BP systolic 96–150; BP diastolic 45–90
[2019-08-13] MEDS: LEVALBUTEROL 1.25 MG/0.5 ML CONCENTRATE NEB NEB SCH ×4 (01:53→20:16)
[2019-08-13] MEDS: KETOROLAC 30 MG/ML VIAL (J1885) IV SCH ×4 (02:07→18:06)
[2019-08-13] MEDS: KCL 20MEQ IN D5/NS 1000ML 1,000 ML IV SCH (04:34)
[2019-08-13 04:53] LABS: BASO # 0.1 10^3/uL (0.0-0.2); BASO % 0.5 % (0.0-1.0); EOS % 0.1 % (0.0-3.0); HEMATOCRIT 33.5 % (36.0-47.0); HEMOGLOBIN 11.1 g/dl (12.0-15.5); LYMPH # 2.5 10^3/uL (1.5-5.0); LYMPH % 24.4 % (24.0-44.0); MEAN CORPUSCULAR HEMOGLOBIN 30.8 pg (27.0-33.0); MEAN CORPUSCULAR HGB CONC 33.1 g/dl (32.0-36.5); MEAN CORPUSCULAR VOLUME 93.1 fl (80.0-96.0); MONO # 1.1 10^3/uL (0.0-0.8); NEUTROPHILS # 6.5 10^3/uL (1.5-8.5); NEUTROPHILS % 63.8 % (36.0-66.0); PLATELET COUNT, AUTOMATED 223 10^3/uL (150-450); WHITE BLOOD COUNT 10.3 10^3/uL (4.0-10.0)
[2019-08-13 05:22] LABS: BLOOD UREA NITROGEN 10 MG/DL (7-18); CALCIUM LEVEL 7.8 MG/DL (8.5-10.1); CARBON DIOXIDE LEVEL 25 MEQ/L (21-32); CHLORIDE LEVEL 101 MEQ/L (98-107); CREATININE FOR GFR 0.58 MG/DL (0.55-1.30); GLOMERULAR FILTRATION RATE > 60.0 (>58); GLUCOSE, FASTING 242 MG/DL (70-100); POTASSIUM SERUM 3.9 MEQ/L (3.5-5.1); SODIUM LEVEL 132 MEQ/L (136-145)
[2019-08-13 05:59] LABS: ABG HCO3 23.7 MEQ/L (22.0-26.0); ABG O2 SATURATION 96.7 % (95.0-99.0); ABG PARTIAL PRESSURE CO2 39.8 mmHg (35.0-45.0); ABG PARTIAL PRESSURE O2 87.1 mmHg (75.0-100.0); ABG STANDARD HCO3 23.6 MEQ/L (22.0-26.0); ABG TOTAL CO2 24.9 MEQ/L (22.0-29.0); ABG pH (ARTERIAL) 7.393 UNITS (7.350-7.450)
[2019-08-13] MEDS: HumaLOG INSULIN (NovoLOG) PER UNIT SC SCH ×4 (06:00→07:21)
--- NOTE | 2019-08-13 08:44 | REP ---
Clinical: Interstitial lung disease. Technique: PA and lateral. Comparison: 08/08/2019. Findings: Right-sided chest tube. Mediastinum and cardiac silhouette are stable. Lung rudolph demonstrate diffuse chronic interstitial changes with superimposed mid to lower lobe infiltrate suggested (right greater than left). Postsurgical changes in the right upper lung zone. No obvious effusion. No obvious pneumothorax. Skeletal structures stable. Impression: Chronic interstitial changes with possible subtle superimposed scattered infiltrates. Electronically Signed by Giovanni Grullon MD 08/13/2019 08:35 A
[2019-08-13] MEDS: DOCUSATE SODIUM 100 MG CAP PO SCH ×2 (08:58→21:13)
[2019-08-13] MEDS: PANTOPRAZOLE 40MG TAB (PROTONIX) PO SCH (08:58)
[2019-08-13] MEDS: HEPARIN SOD (PORCINE) 5000 UNITS/ML VIAL SC SCH ×2 (08:58→21:14)
[2019-08-13] MEDS: MOM 30ML SUSPENSION UDC PO SCH (08:58)
--- NOTE | 2019-08-13 11:18 | IPN ---
DATE: 08/13/2019 This is now the first postoperative day for Mrs. Ramires. She has had a stable night of surgery. Her pain is being well controlled with the epidural. Her vital signs show a T-max of 99.7 with a heart rate that ranges between 74 and 80 in a sinus rhythm, a respiratory rate that is constant at 18, who is 98% saturated now on room air and whose blood pressure is ranging between 118/66 to 150/74. Her intake and output the past 24 hours has been recorded as 2250 in and 805 out for a positivity of 1445 mL. Urine output has been 720 mL and chest tube output 75 mL. There is no air leak. Weight today is 45.7 kg compared to 47 kg yesterday. On physical examination, she has crackles in the right lower hemithorax. Left lung shows normal vesicular sounds. Percussion note is full to the diaphragm. Cardiac Exam: Without murmurs, clicks, gallops, or rubs. I cannot feel her PMI. S1 and S2 are normal. Abdomen: Soft. Nontender. Bowel sounds are positive. There is no hepatomegaly. No costovertebral angle (CVA) tenderness. Extremities: Show no pretibial edema. No calf tenderness. No differential swelling of the upper extremities. Skin: Warm, dry and perfused. Without cyanosis or mottling, including that of the nail beds and knees. Neck: Supple. There is no jugular venous distention. No subcutaneous emphysema. Trachea is midline. Mouth: Shows her mucous membranes to be pink and moist. Lips and commissures are without lesions. There is no thrush. She has an ecchymosis on the posterior pharynx. Eyes: Show her pupils to be equal and reactive. Extraocular movements intact. Sclerae nonicteric. Neurologic: Shows II-XII intact along with gross motor and gross sensation intact. Gait is not tested. Psychiatric shows her to be awake, alert, and oriented times three with appropriate mood and affect and conversational. Her white count today is 10.3 with hemoglobin and hematocrit of 11.1 and 33.5. Platelet count is 223 and stable. Differential shows 63% neutrophils, 24% lymphocytes and 11% monocytes. There are no immature forms and no toxic granulations. Her electrolytes show a sodium of 132 with the remainder of her electrolytes normal. BUN and creatinine are 10 and 0.58 with a glucose of 242 and a calcium of 7.8. Her finger stick glucoses have been ranging between 196 and 222. Her chest x-ray today shows her lung fully expanded to the chest wall. Chest tube is in good place. She has patchy infiltrates throughout both lungs consistent with her underlying lung disease. Final pathology is pending and probably will not be back for about a week as it no doubt will be sent out to a specialist pulmonary pathologist. IMPRESSION: 1. Interstitial lung disease, final pathology pending. 2. Type 1 diabetes. 3. Hypertension. 4. Hypothyroidism. 5. Hyperlipidemia. 6. Postoperative day #1 status post multiple wedge resections. PLAN AND DISCUSSION: I will discontinue her chest tube suction today. Hopefully, we will remove the chest tubes in the morning. I have instructed the nurses to allow her to control her insulin pump and do her own finger sticks. I will transfer her to the progressive care unit (PCU) today.
[2019-08-13] MEDS ORDERED: HUMALOG SQ ONE (12:00)
[2019-08-13] MEDS: FENTANYL/BUPIVACAINE/NACL BAG 250 ML EPIDURAL SCH (12:29)
[2019-08-13] MEDS ORDERED: HUMALOG SQ SCH (15:00)
[2019-08-13] MEDS ORDERED: HumaLOG INSULIN (NovoLOG) PER UNIT SC SCH (21:00)
[2019-08-14] MEDS: KETOROLAC 30 MG/ML VIAL (J1885) IV SCH ×4 (01:28→17:53)
[2019-08-14] MEDS: LEVALBUTEROL 1.25 MG/0.5 ML CONCENTRATE NEB NEB SCH ×4 (02:00→19:57)
[2019-08-14 04:00] VITALS: BP 146/77
[2019-08-14 05:35] LABS: BASO % 0.5 % (0.0-1.0); EOS # 0.2 10^3/uL (0.0-0.5); EOS % 2.7 % (0.0-3.0); HEMATOCRIT 31.6 % (36.0-47.0); HEMOGLOBIN 10.7 g/dl (12.0-15.5); LYMPH # 2.3 10^3/uL (1.5-5.0); LYMPH % 26.1 % (24.0-44.0); MEAN CORPUSCULAR HEMOGLOBIN 31.6 pg (27.0-33.0); MEAN CORPUSCULAR HGB CONC 33.9 g/dl (32.0-36.5); MEAN CORPUSCULAR VOLUME 93.2 fl (80.0-96.0); MONO # 0.9 10^3/uL (0.0-0.8); MONO % 9.9 % (0.0-5.0); NEUTROPHILS # 5.3 10^3/uL (1.5-8.5); NEUTROPHILS % 60.6 % (36.0-66.0); PLATELET COUNT, AUTOMATED 210 10^3/uL (150-450); RED BLOOD COUNT 3.39 10^6/uL (4.00-5.40); WHITE BLOOD COUNT 8.8 10^3/uL (4.0-10.0)
[2019-08-14 06:05] LABS: BLOOD UREA NITROGEN 6 MG/DL (7-18); CALCIUM LEVEL 8.3 MG/DL (8.5-10.1); CARBON DIOXIDE LEVEL 28 MEQ/L (21-32); CHLORIDE LEVEL 107 MEQ/L (98-107); CREATININE FOR GFR 0.47 MG/DL (0.55-1.30); GLOMERULAR FILTRATION RATE > 60.0 (>58); GLUCOSE, FASTING 57 MG/DL (70-100); POTASSIUM SERUM 3.9 MEQ/L (3.5-5.1); SODIUM LEVEL 140 MEQ/L (136-145)
[2019-08-14 08:00] VITALS: BP 140/74
--- NOTE | 2019-08-14 08:22 | REP ---
Two-view chest: 08/14/2019. Comparison: Yesterday. Indication: Dyspnea. Findings: Right-sided chest tube is unchanged in position. Very tiny right apical pneumothorax is suspected. Bilateral chronic interstitial changes are present. Patchy air space consolidations are unchanged. There is no oral effusion. Impression: Tiny right apical pneumothorax. Chest tube unchanged in position on the right. Otherwise stable examination. Electronically Signed by Luís Edwards DO 08/14/2019 08:13 A
[2019-08-14] MEDS: DOCUSATE SODIUM 100 MG CAP PO SCH ×2 (08:28→21:32)
[2019-08-14] MEDS: PANTOPRAZOLE 40MG TAB (PROTONIX) PO SCH (08:28)
[2019-08-14] MEDS: MOM 30ML SUSPENSION UDC PO SCH (08:28)
[2019-08-14] MEDS: HEPARIN SOD (PORCINE) 5000 UNITS/ML VIAL SC SCH ×2 (08:29→21:32)
[2019-08-14] MEDS: FENTANYL/BUPIVACAINE/NACL BAG 250 ML EPIDURAL SCH (11:36)
[2019-08-14 12:00] VITALS: BP 140/82
[2019-08-14] MEDS ORDERED: PILL CUTTER 1 EACH XX PRN (14:45)
--- NOTE | 2019-08-14 15:07 | IPN ---
DATE: 08/14/2019 This is now the second postoperative day for Mrs. Ramires. Her pain is being well controlled. She is working her insulin pump and taking care of her sugars. Her vital signs show a maximum temperature (t-max) of 100.5 with a heart rate that ranges between 97 and 89 in a sinus rhythm, respiratory rate of 18 to 16 without the use of accessory muscles, who is 96 to 98% saturated on room air and whose blood pressure is ranging between 140/82 to 136/78. Her intake and output over the past 24 hours has been recorded as 2435 in and 2780 out for a negativity of 345 mL. She has taken in 1600 mL in oral intake. Chest tube has put out 220 mL. Weight today is 51.9 kg compared to 51.5 kg yesterday. PHYSICAL EXAMINATION: LUNGS: She has bilateral crackles on either side. These sound more coarse than her prior Velcro crackles. These do not clear with coughing. Percussion note is full to the diaphragm. CARDIAC EXAM: Without murmurs, clicks, gallops or rubs. I cannot feel her point of maximum impulse (PMI). S1, S2 are normal. ABDOMEN: Soft, nontender. Bowel sounds positive. There is no hepatomegaly. No costovertebral angle tenderness. EXTREMITIES: Show no pretibial edema. No calf tenderness. No differential swelling of the upper extremities. SKIN: Warm, dry and perfused without cyanosis or mottling, including that of the nail beds and knees. NECK: Supple. There is no jugular venous distention. No subcutaneous emphysema. Trachea is midline. MOUTH: Shows her mucous membranes to be pink and moist. Lips and commissures without lesions. There is no thrush. EYES: Show her pupils to be equal and reactive. Extraocular motion intact. Sclerae anicteric. NEUROLOGIC: Shows II through XII intact with gross motor and gross sensation intact. Gait is not tested. PSYCHIATRIC: Shows her to be awake and alert, oriented times three with appropriate mood and affect and conversational. Her white count today is 8.8 with a hemoglobin and hematocrit of 10.7 and 31.6, respectively, essentially unchanged from yesterday. Platelet count is 210 and stable. Differential shows 60% neutrophils, 26% lymphocytes and 9% monocytes. There are no immature forms, no toxic granulations. Her electrolytes are normal with her sodium normalizing to 140. BUN and creatinine are 6 and 0.47 with a glucose of 57. This morning calcium is 8.3. She drank some orange juice and her glucose came up to 222. Her chest x-ray today shows her lung fully expanded to the chest wall. She has diffuse patchy infiltrates consistent with her interstitial lung disease. Final pathology is still pending. There is no pneumothorax and no subcutaneous emphysema. IMPRESSION: 1. Postoperative day #2 status post multiple wedge resections. 2. Interstitial lung disease, final pathology pending. 3. Type 1 diabetes. 4. Hypertension. 5. Hypothyroidism. 6. Hyperlipidemia. PLAN/DISCUSSION: I will keep her chest tubes in again today. She is on water seal. I am gratified that there is no air leak. I renewed her home medications.
[2019-08-14] MEDS: PHENobarbital 30 MG TAB PO SCH (15:14)
[2019-08-14] MEDS: ROSUVASTATIN 10 MG TAB (CRESTOR) PO SCH (15:14)
[2019-08-14] MEDS: RAMIPRIL 5 MG CAP PO SCH (15:14)
[2019-08-14] MEDS: METOPROLOL SUCC *XL* 12.5MG PER 1/2 TAB (TopROL *XL*) PO SCH (15:15)
[2019-08-14 16:00] VITALS: BP 137/73
[2019-08-14 20:00] VITALS: BP 122/70
[2019-08-15] VITALS: BP 146/92
[2019-08-15] MEDS: KETOROLAC 30 MG/ML VIAL (J1885) IV SCH ×4 (01:10→17:56)
[2019-08-15] MEDS: LEVALBUTEROL 1.25 MG/0.5 ML CONCENTRATE NEB NEB SCH ×4 (01:32→20:22)
[2019-08-15 04:00] VITALS: BP 146/62
[2019-08-15 05:36] LABS: BASO % 0.5 % (0.0-1.0); EOS # 0.4 10^3/uL (0.0-0.5); EOS % 5.4 % (0.0-3.0); HEMOGLOBIN 11.1 g/dl (12.0-15.5); LYMPH # 2.2 10^3/uL (1.5-5.0); LYMPH % 29.5 % (24.0-44.0); MEAN CORPUSCULAR HEMOGLOBIN 31.6 pg (27.0-33.0); MEAN CORPUSCULAR HGB CONC 33.6 g/dl (32.0-36.5); MONO # 0.8 10^3/uL (0.0-0.8); MONO % 10.9 % (0.0-5.0); NEUTROPHILS % 53.4 % (36.0-66.0); PLATELET COUNT, AUTOMATED 196 10^3/uL (150-450); RED BLOOD COUNT 3.51 10^6/uL (4.00-5.40); WHITE BLOOD COUNT 7.4 10^3/uL (4.0-10.0)
[2019-08-15 06:08] LABS: BLOOD UREA NITROGEN 6 MG/DL (7-18); CALCIUM LEVEL 8.7 MG/DL (8.5-10.1); CARBON DIOXIDE LEVEL 28 MEQ/L (21-32); CHLORIDE LEVEL 103 MEQ/L (98-107); CREATININE FOR GFR 0.53 MG/DL (0.55-1.30); GLOMERULAR FILTRATION RATE > 60.0 (>58); GLUCOSE, FASTING 123 MG/DL (70-100); POTASSIUM SERUM 4.1 MEQ/L (3.5-5.1); SODIUM LEVEL 137 MEQ/L (136-145)
[2019-08-15] MEDS: LEVOTHYROXINE 150MCG TABLET (0.15MG) PO SCH (06:17)
[2019-08-15 08:00] VITALS: BP 150/98
[2019-08-15] MEDS: MOM 30ML SUSPENSION UDC PO SCH (09:46)
[2019-08-15] MEDS: DOCUSATE SODIUM 100 MG CAP PO SCH ×2 (09:46→20:56)
[2019-08-15] MEDS: HEPARIN SOD (PORCINE) 5000 UNITS/ML VIAL SC SCH ×2 (09:46→20:56)
[2019-08-15] MEDS: ROSUVASTATIN 10 MG TAB (CRESTOR) PO SCH (09:47)
[2019-08-15] MEDS: RAMIPRIL 5 MG CAP PO SCH (09:47)
[2019-08-15] MEDS: METOPROLOL SUCC *XL* 12.5MG PER 1/2 TAB (TopROL *XL*) PO SCH (09:48)
[2019-08-15] MEDS: PANTOPRAZOLE 40MG TAB (PROTONIX) PO SCH (09:55)
[2019-08-15] MEDS: PHENobarbital 30 MG TAB PO SCH (09:55)
--- NOTE | 2019-08-15 10:39 | IPN ---
DATE: 08/15/2019 This is now the third postoperative day for Mrs. Ramires. Her pain is being well controlled with the epidural. She is breathing well and is able to ambulate. Her vital signs show a T-max of 99.2 with a blood pressure that ranges between 150/98 to 146/62, with a pulse of 80 to 93 in a sinus rhythm, a respiratory rate of 16 to 18 without the use of accessory muscles, who is 98 to 99% saturated now on room air. Her intake and output the past 24 hours has been recorded as 880 in and 3310 out for a negativity of 2400 mL. She has put out 325 mL from 12 midnight to 12 midnight. Over the past 24 hours, from 7:00 to 7:00, she has put out less than 200 mL. There is no air leak. On physical examination, she has coarse crackles on the right side and some fine crackles on the left side in the lower hemithoraces. Percussion notes are full to the diaphragm. Cardiac Exam: Without murmurs, clicks, gallops, or rubs. I cannot feel her PMI. S1 and S2 are normal. Abdomen: Soft. Nontender. Bowel sounds are positive. There is no hepatomegaly. No costovertebral angle (CVA) tenderness. Extremities: Show no pretibial edema. No calf tenderness. No differential swelling of the upper extremities. Skin: Warm, dry and perfused. Without cyanosis or mottling, including that of the nail beds and knees. Neck: Supple. There is no jugular venous distention. No subcutaneous emphysema. Trachea is midline. Mouth: Shows her mucous membranes to be pink and moist. Lips and commissures are without lesions. There is no thrush. Eyes: Show her pupils to be equal and reactive. Extraocular movements intact. Sclerae nonicteric. Neurologic: Shows II-XII intact along with gross motor and gross sensation intact. Gait is not tested. Psychiatric shows her to be awake, alert, and oriented times three with appropriate mood and affect and conversational. Her white count today is 7.4 with hemoglobin and hematocrit of 11.1 and 33.1 respectively, slightly up from 10.7 and 31.6 secondary to hemoconcentration. Platelet count is 196 and stable. Differential shows 53% neutrophils, 29% lymphocytes and 10% monocytes. There are no immature forms and no toxic granulations. Her electrolytes are normal with a BUN and creatinine of 6 and 0.53, glucose of 123, and a calcium of 8.5. Her chest x-ray today shows patchy infiltrates consistent with her underlying interstitial disease. Costophrenic angles are sharp. Chest tube is in good place. There is no subcutaneous emphysema and the lung is fully expanded to the chest wall. Lateral chest x-ray does not show any posterior infiltrates. IMPRESSION: 1. Postoperative day three status post multiple wedge resections. 2. Interstitial lung disease, final pathology pending. 3. Type 1 diabetes. 4. Hypertension. 5. Hypothyroidism. 6. Hyperlipidemia. PLAN AND DISCUSSION: I will remove her chest tubes today. Will wean her epidural, discontinue her Michaud and convert her over to oral pain control. If all goes well, I plan discharge in the morning.
[2019-08-15 12:00] VITALS: BP 149/75
[2019-08-15] MEDS ORDERED: NORCO, ANEXSIA 5/325MG TABLET (HYDROcodone/ACETAMINOPHEN) PO PRN (12:00)
[2019-08-15] MEDS ORDERED: PERCOCET 5MG/325MG TAB PO PRN (12:00)
--- NOTE | 2019-08-15 13:58 | REP ---
Two-view chest: 08/15/2019. Indication: New pneumothorax. Comparison: Yesterday. Findings: Right-sided chest tube and a tiny right apical pneumothorax are stable. There is no significant pleural effusion. Chronic increased interstitial markings are present. The cardiac silhouette is not enlarged. Impression: Stable tiny right apical pneumothorax. Chest tube unchanged in position on the right. Electronically Signed by Luís Edwards DO 08/15/2019 01:50 P
[2019-08-15 16:00] VITALS: BP 137/80
[2019-08-15 20:00] VITALS: BP 149/83
[2019-08-16] VITALS: BP 132/71
[2019-08-16] MEDS: KETOROLAC 30 MG/ML VIAL (J1885) IV SCH ×2 (01:08→06:35)
[2019-08-16] MEDS: LEVALBUTEROL 1.25 MG/0.5 ML CONCENTRATE NEB NEB SCH ×2 (01:15→08:31)
[2019-08-16 04:00] VITALS: BP 121/61
[2019-08-16] MEDS: PERCOCET 5MG/325MG TAB PO PRN ×2 (05:38→11:07)
[2019-08-16] MEDS: LEVOTHYROXINE 150MCG TABLET (0.15MG) PO SCH (05:38)
[2019-08-16 06:11] LABS: BASO % 0.6 % (0.0-1.0); EOS # 0.5 10^3/uL (0.0-0.5); EOS % 8.4 % (0.0-3.0); HEMATOCRIT 34.3 % (36.0-47.0); HEMOGLOBIN 11.5 g/dl (12.0-15.5); LYMPH # 1.7 10^3/uL (1.5-5.0); LYMPH % 26.2 % (24.0-44.0); MEAN CORPUSCULAR HEMOGLOBIN 31.3 pg (27.0-33.0); MEAN CORPUSCULAR HGB CONC 33.5 g/dl (32.0-36.5); MEAN CORPUSCULAR VOLUME 93.5 fl (80.0-96.0); MONO # 0.8 10^3/uL (0.0-0.8); MONO % 12.9 % (0.0-5.0); NEUTROPHILS # 3.3 10^3/uL (1.5-8.5); NEUTROPHILS % 51.7 % (36.0-66.0); PLATELET COUNT, AUTOMATED 230 10^3/uL (150-450); RED BLOOD COUNT 3.67 10^6/uL (4.00-5.40); WHITE BLOOD COUNT 6.4 10^3/uL (4.0-10.0)
[2019-08-16 06:40] LABS: BLOOD UREA NITROGEN 9 MG/DL (7-18); CALCIUM LEVEL 8.9 MG/DL (8.5-10.1); CARBON DIOXIDE LEVEL 29 MEQ/L (21-32); CHLORIDE LEVEL 101 MEQ/L (98-107); CREATININE FOR GFR 0.54 MG/DL (0.55-1.30); GLOMERULAR FILTRATION RATE > 60.0 (>58); GLUCOSE, FASTING 139 MG/DL (70-100); SODIUM LEVEL 136 MEQ/L (136-145)
[2019-08-16 08:00] VITALS: BP 149/84
[2019-08-16] MEDS: RAMIPRIL 5 MG CAP PO SCH (08:27)
[2019-08-16 08:28] VITALS: BP 121/60
[2019-08-16] MEDS: PHENobarbital 30 MG TAB PO SCH (08:28)
[2019-08-16] MEDS: DOCUSATE SODIUM 100 MG CAP PO SCH (08:28)
[2019-08-16] MEDS: METOPROLOL SUCC *XL* 12.5MG PER 1/2 TAB (TopROL *XL*) PO SCH (08:28)
[2019-08-16] MEDS: MOM 30ML SUSPENSION UDC PO SCH (08:29)
[2019-08-16] MEDS: PANTOPRAZOLE 40MG TAB (PROTONIX) PO SCH (08:29)
[2019-08-16] MEDS: ROSUVASTATIN 10 MG TAB (CRESTOR) PO SCH (08:29)
[2019-08-16] MEDS: HEPARIN SOD (PORCINE) 5000 UNITS/ML VIAL SC SCH (08:29)
--- NOTE | 2019-08-16 09:13 | REP ---
CHEST, TWO VIEWS: Two views of the chest are performed and compared to prior study of 08/15/2019. There has been removal of the right chest tube. There is no pneumothorax seen. Bilateral parenchymal opacities are unchanged. Heart and mediastinum are unchanged. IMPRESSION: Removal of right chest tube. Otherwise stable. Electronically Signed by Jus Anton MD 08/16/2019 03:41 P
[2019-08-16] MEDS ORDERED: PERCOCET PO (09:47)
--- NOTE | 2019-08-16 10:17 | DSES ---
DATE OF ADMISSION: 08/12/2019 DATE OF DISCHARGE: 08/16/2019 DISCHARGE DIAGNOSES: Interstitial lung disease, final pathology pending. Type I diabetes. Hypertension. Hypothyroidism. Hyperlipidemia. HOSPITAL COURSE: Patient is a 49-year-old female who has been noted to have high resolution chest CT changes consistent with interstitial lung disease. She first noticed a change in her breathing approximately 18 months ago when she was doing vigorous exercising. Normally she does not complain of shortness of breath with moderate or regular activity. She was found to have a very dilated esophagus with what looked to be a birds beak and her lung imaging was maybe thought to be secondary to silent aspiration. She was thoroughly evaluated by gastrointestinal (GI) and was found to have esophageal dysmotility but no achalasia. There is no convincing history of aspiration. Furthermore, the distribution of the interstitial lung disease was not consistent with aspiration. She was therefore taken to the operating room where she underwent multiple wedge resections of the upper, middle, and lower lobes for diagnosis. She has a benign postoperative course with chest tubes being removed on postoperative day #3. Her diabetes was well controlled by use of her insulin pump. She is being discharged today on her home medications which include: - amlodipine 25 mg daily - vitamin D 5000 units daily - insulin pump - Synthroid 150 mg daily - magnesium oxide 400 mg daily - metoprolol 12.5 mg daily - phenobarbital 64.8 mg daily - Ramipril 10 mg daily - rosuvastatin 5 mg daily She is also being sent home on Percocet 5/325 every 6 hours as needed for pain. I will see her back in the office in 1 weeks for postoperative followup at which time the final pathology should be back. Her discharge hemoglobin and hematocrit is 11.5 and 34.3 with a discharge white count of 6.4 and a platelet count of 230. Her electrolytes are normal with a BUN and creatinine of 9 and 0.54. Her chest x-ray shows her lung fully expanded to the chest wall with diffuse patchy infiltrates consistent with her interstitial disease. edited: 08/17/2019 0933 tkf MILADYS
== END 2019-08-16 11:20 | disposition home or self-care (01) | DRG 168 ==
LOC: M OR 06:46 → M ICU 15:10 → M PCU 08-13 13:45
PROVIDERS: ADMIT Thoracic Surgery (Cardiothoracic Vascular Surgery); ATTEND Thoracic Surgery (Cardiothoracic Vascular Surgery)
PROC: 0BBF4ZX Excision of Right Lower Lung Lobe, Percutaneous Endoscopic Approach, Diagnostic (ICD-10-PCS; 2019-08-12)
PROC: 0BBC4ZX Excision of Right Upper Lung Lobe, Percutaneous Endoscopic Approach, Diagnostic (ICD-10-PCS; 2019-08-12)
PROC: 0BJ08ZZ Inspection of Tracheobronchial Tree, Via Natural or Artificial Opening Endoscopic (ICD-10-PCS; 2019-08-12)
PROC: 0BBD4ZX Excision of Right Middle Lung Lobe, Percutaneous Endoscopic Approach, Diagnostic (ICD-10-PCS; principal; 2019-08-12 08:30)
DX: J84.111 Idiopathic interstitial pneumonia, not otherwise specified (principal); E10.9 Type 1 diabetes mellitus without complications; I10 Essential (primary) hypertension; E03.9 Hypothyroidism, unspecified; E78.5 Hyperlipidemia, unspecified; K22.70 Barrett's esophagus without dysplasia; Z79.4 Long term (current) use of insulin; Z79.899 Other long term (current) drug therapy

== ENCOUNTER → 2019-09-12 | Outpatient (REF) | payer OTHER ==
[~2019-09-12] MED LIST changes: +PERCOCET PO
[2019-09-12 18:30] LABS: MALB URINE SIEMENS < 5.0 MG/L; MAU/CREAT RATIO 21.7 MCG/MG (0.0-30.0)
== END ==
LOC: M LAB REF 17:17
PROVIDERS: ATTEND Internal Medicine Endocrinology, Diabetes & Metabolism
DX: E10.649 Type 1 diabetes mellitus with hypoglycemia without coma (principal)

== ENCOUNTER → 2019-10-06 | Outpatient (CLI) | payer OTHER ==
[2019-10-06 20:48] LABS: FREE T4 0.9 NG/DL (0.76-1.46); THYROID STIMULATING HORMONE 5.42 uIU/ML (0.358-3.740)
== END ==
LOC: M WUC 15:38
PROVIDERS: ATTEND Obstetrics & Gynecology
DX: R00.2 Palpitations (principal)

== ENCOUNTER → 2019-10-06 | Outpatient (CLI) | payer OTHER ==
--- NOTE | 2019-10-06 14:03 | REP ---
Two-view chest: 10/06/2019. Indication: Dyspnea. Comparison: 08/16/2019. Findings: There is improved aeration of the lungs compared to the most recent study. Persistent prominent interstitial markings and patchy pulmonary opacities are noted. The cardiomediastinal silhouette is unremarkable. There is no pleural effusion or pneumothorax. Impression: No acute cardiopulmonary process. Improved aeration of the lungs compared to 08/16/2019. Electronically Signed by Luís Edwards DO 10/06/2019 01:55 P
== END ==
LOC: M WUC 13:19
PROVIDERS: ATTEND Thoracic Surgery (Cardiothoracic Vascular Surgery)
DX: J84.9 Interstitial pulmonary disease, unspecified (principal)

== ENCOUNTER → 2019-10-30 | Outpatient (CLI) | payer OTHER ==
[2019-10-30 20:38] LABS: BASO # 0.1 10^3/uL (0.0-0.2); BASO % 1.5 % (0.0-1.0); EOS # 0.3 10^3/uL (0.0-0.5); EOS % 4.2 % (0.0-3.0); HEMATOCRIT 41.2 % (36.0-47.0); HEMOGLOBIN 12.9 g/dl (12.0-15.5); LYMPH # 2.6 10^3/uL (1.5-5.0); LYMPH % 38.9 % (24.0-44.0); MEAN CORPUSCULAR HEMOGLOBIN 29.8 pg (27.0-33.0); MEAN CORPUSCULAR HGB CONC 31.3 g/dl (32.0-36.5); MEAN CORPUSCULAR VOLUME 95.2 fl (80.0-96.0); MONO # 0.7 10^3/uL (0.0-0.8); MONO % 10.2 % (0.0-5.0); NEUTROPHILS % 45.1 % (36.0-66.0); PLATELET COUNT, AUTOMATED 293 10^3/uL (150-450); RED BLOOD COUNT 4.33 10^6/uL (4.00-5.40); WHITE BLOOD COUNT 6.7 10^3/uL (4.0-10.0)
[2019-10-30 21:03] LABS: ALT/SGPT 14 U/L (12-78); BILIRUBIN,TOTAL 0.2 MG/DL (0.2-1.0); BLOOD UREA NITROGEN 13 MG/DL (7-18); CALCIUM LEVEL 8.9 MG/DL (8.5-10.1); CARBON DIOXIDE LEVEL 28 MEQ/L (21-32); CHLORIDE LEVEL 101 MEQ/L (98-107); CREATININE FOR GFR 0.57 MG/DL (0.55-1.30); GLOMERULAR FILTRATION RATE > 60.0 (>58); GLUCOSE, FASTING 107 MG/DL (70-100); POTASSIUM SERUM 4.5 MEQ/L (3.5-5.1); SODIUM LEVEL 137 MEQ/L (136-145); TOTAL PROTEIN 7.5 GM/DL (6.4-8.2)
== END ==
LOC: M WUC 16:13
PROVIDERS: ATTEND Internal Medicine
DX: I10 Essential (primary) hypertension (principal); E03.9 Hypothyroidism, unspecified; E83.42 Hypomagnesemia

== ENCOUNTER → 2020-04-06 | Outpatient (CLI) | payer OTHER ==
--- NOTE | 2020-04-06 19:59 | ECHO ---
DATE OF PROCEDURE: 04/06/2020 REFERRING PHYSICIAN: Dr. Horacio Lobo INDICATION: Pulmonary hypertension. Height 152 cm, weight 47 kg. DIMENSIONS: IVS: 1.0 LV: 3.9 LVPW: 1.2 LA: 3.6 Aorta: 2.0 IVC: 1.1 Mitral E wave velocity: 108 A wave velocity: 91 E prime septal: 6.8 E prime lateral: 10.9 FINDINGS: The study is of acceptable technical quality. The patient is in sinus rhythm. Normal left ventricular (LV) size with borderline left ventricular hypertrophy (LVH) and preserved LV systolic function, estimated left ventricular ejection fraction (LVEF) 60-65%. Computer calculated LVEF 62%. Right ventricle does not appear dilated and is normally contractile. Left atrium is mildly enlarged. Right atrium appears normal. Atrial septum is bulging to the right. Aortic, mitral, and tricuspid valves appear normal. Pulmonic valve was not well seen. No pericardial effusion is noted. Inferior vena cava is normal size and appropriately collapses with inspiration indicative of normal central venous pressure. Aortic root is normal. Aortic arch also appears normal, abdominal aorta was not well visualized. Doppler interrogation reveals no aortic stenosis or insufficiency, trace mitral insufficiency and trace tricuspid insufficiency. Calculated pulmonary artery pressure is around 30 mmHg corresponding to upper limits of normal values. Mitral inflow pattern and tissue Doppler velocities of mitral annulus indicate likely normal diastolic function even though tissue Doppler velocities are mildly reduced. CONCLUSIONS: 1. Study is of acceptable technical quality, the patient is in sinus rhythm. 2. Normal LV size with borderline LVH and preserved LV systolic function. Normal diastolic function. 3. No hemodynamically significant valvular disease. 4. Normal central venous pressure. 5. Estimated pulmonary artery pressure around 30 mmHg corresponding to borderline pulmonary hypertension. COMMENT: Subacute bacterial endocarditis (SBE) prophylaxis is not recommended.
== END ==
LOC: M CARPUL 08:11
PROVIDERS: ATTEND Internal Medicine
DX: I27.20 Pulmonary hypertension, unspecified (principal)

== ENCOUNTER → 2020-12-06 | Outpatient (CLI) | payer OTHER ==
[2020-12-06 18:36] LABS: ALBUMIN 3.6 GM/DL (3.2-5.2); ALT/SGPT 14 U/L (12-78); BILIRUBIN,TOTAL 0.3 MG/DL (0.2-1.0); BLOOD UREA NITROGEN 7 MG/DL (7-18); CALCIUM LEVEL 8.8 MG/DL (8.5-10.1); CARBON DIOXIDE LEVEL 31 MEQ/L (21-32); CHLORIDE LEVEL 101 MEQ/L (98-107); CREATININE FOR GFR 0.58 MG/DL (0.55-1.30); GLOMERULAR FILTRATION RATE > 60.0 (>58); GLUCOSE, FASTING 112 MG/DL (70-100); MAGNESIUM LEVEL 1.8 MG/DL (1.8-2.4); SODIUM LEVEL 137 MEQ/L (136-145); TOTAL PROTEIN 7.3 GM/DL (6.4-8.2)
[2020-12-06 18:45] LABS: BASO # 0.1 10^3/uL (0.0-0.2); BASO % 1.3 % (0.0-1.0); EOS # 0.2 10^3/uL (0.0-0.5); EOS % 2.7 % (0.0-3.0); HEMATOCRIT 39.3 % (36.0-47.0); HEMOGLOBIN 12.9 g/dl (12.0-15.5); LYMPH # 2.2 10^3/uL (1.5-5.0); LYMPH % 28.4 % (24.0-44.0); MEAN CORPUSCULAR HEMOGLOBIN 30.6 pg (27.0-33.0); MEAN CORPUSCULAR HGB CONC 32.8 g/dl (32.0-36.5); MEAN CORPUSCULAR VOLUME 93.1 fl (80.0-96.0); MONO # 0.9 10^3/uL (0.0-0.8); MONO % 11.2 % (0.0-8.0); NEUTROPHILS # 4.3 10^3/uL (1.5-8.5); NEUTROPHILS % 56.1 % (36.0-66.0); PLATELET COUNT, AUTOMATED 262 10^3/uL (150-450); RED BLOOD COUNT 4.22 10^6/uL (4.00-5.40); WHITE BLOOD COUNT 7.7 10^3/uL (4.0-10.0)
== END ==
LOC: M LAB 16:38
PROVIDERS: ATTEND Internal Medicine
DX: E83.42 Hypomagnesemia (principal); I10 Essential (primary) hypertension; E03.9 Hypothyroidism, unspecified

== ENCOUNTER → 2021-04-04 | Outpatient (CLI) | payer OTHER ==
--- NOTE | 2021-04-04 14:06 | REPMRS ---
Patient History The patient states she has not had a clinical breast exam in over a year. Patient is nulliparous. Family history of breast cancer at age 65 in mother, breast cancer at age 42 in sister, breast cancer at age 65 in paternal aunt. No Hormone Replacement Therapy Moderna vaccine 10/19/20 right arm. 11/16/20 right arm. Patient states no breast complaints today. Patient has signed MRS History Sheet. Digital Woman Screen Mammo: April 04, 2021 - Exam #: [id number] Bilateral CC and MLO view(s) were taken. Technologist: RT Yair Prior study comparison: March 07, 2019, bilateral digital mammo screening bilat, performed at [facility]. November 03, 2015, bilateral digital mammo screening bilat, performed at [facility]. FINDINGS: The breast tissue is extremely dense which could obscure a lesion on mammography. Screening. Digital screening (2D) mammography was performed bilaterally in the CC and MLO projections. Additionally, breast tomosynthesis (3D mammography) was performed bilaterally in the CC and MLO projections. Todays exam was compared to the prior exam/exams. By history, the patient has no complaints of a palpable breast abnormality or other significant breast complaints. The breasts are unchanged in size and shape.Once again, dense heterogenous fibroglandular elements are seen bilaterally in a stable appearing pattern but to such a degree that the sensitivity of the mammogram in detecting cancer is decreased. There are no janey-soft tissue densities or spiculated masses. There is no internal architectural distortion. There are no suspicious janey-calcific clusters. Skin thickening or nipple retraction is not present. IMPRESSION: BI-RADS Category 2- Benign Findings. There is no evidence of malignant alteration of the breasts. Followup examination recommended in one year. The [place] volumetric breast density category is D, the breasts are extremely dense which lowers the sensitivity of mammography. This mammogram was read with the assistance of [employer],an FDA approved computer aided detection system for mammography. The lifetime Tyrer-Cuzick score is 30.3 . Due to the density of the breasts or Tyrer Cuzick score of 20% or greater, MRI/whole breast screening ultrasound is warranted. % Negative x-ray reports should not delay surgical consultation if a dominant or clinically suspicious mass is present. Not all breast cancers can be identified by mammography. Therefore, we recommend that you continue to perform regular breast self-examination and physical examination and then promptly contact your physician of any concerns or changes. Adenosis and dense breasts may obscure an underlying neoplasm. Assessment: BI-RADS/ACR category 2 mammogram. Benign Findings. Recommendation Routine screening mammogram of both breasts in 1 year. Electronically Signed By: Eddi Mejía DO 04/04/21 [id number]
== END ==
LOC: M WHC 13:03
PROVIDERS: ATTEND Internal Medicine
DX: Z12.31 Encounter for screening mammogram for malignant neoplasm of breast (principal)

== ENCOUNTER 2021-04-18 19:46 | Emergency (ER) | payer OTHER ==
[~2021-04-18] VITALS: Ht 152.4 cm; Wt 47.3 kg
[2021-04-18] MEDS ORDERED: DILT1TAB12 PO (20:06)
[2021-04-18] MEDS ORDERED: OMEP-218 PO (20:08)
--- NOTE | 2021-04-18 21:08 | REPVR ---
PROCEDURE INFORMATION: Exam: CT Head Without Contrast Exam date and time: 04/18/2021 9:01 PM Age: 50 years old Clinical indication: Weakness, extremity; Additional info: Neurologic symptoms, rule out stroke TECHNIQUE: Imaging protocol: Computed tomography of the head without contrast. Radiation optimization: All CT scans at this facility use at least one of these dose optimization techniques: automated exposure control; mA and/or kV adjustment per patient size (includes targeted exams where dose is matched to clinical indication); or iterative reconstruction. Other technique: STROKE PROTOCOL was implemented. COMPARISON: CT Head without contrast 03/04/2018 1:14 PM FINDINGS: Brain: There is no evidence of infarct, donnelly-white matter differentiation is preserved. There is no hemorrhage or extra-axial collection. There is no mass. Cerebral ventricles: There is no hydrocephalus. Paranasal sinuses: Visualized sinuses are unremarkable. No fluid levels. Mastoid air cells: Visualized mastoid air cells are well aerated. Bones/joints: Unremarkable. No acute fracture. Soft tissues: Unremarkable. IMPRESSION: No intracranial lesion or injury ASSESSMENT: ASPECTS ([place] Stroke Program Early CT Score) is 10. Electronically signed by: Adria Dawson On 04/18/2021 21:08:19 PM
[2021-04-18 21:30] VITALS: BP 149/81
== END 2021-04-18 21:36 | disposition home or self-care (01) ==
LOC: M ED 19:46
DX: E11.649 Type 2 diabetes mellitus with hypoglycemia without coma (principal); Z79.899 Other long term (current) drug therapy; Z79.4 Long term (current) use of insulin

== ENCOUNTER → 2021-05-23 | Outpatient (CLI) | payer OTHER ==
[~2021-05-23] MED LIST changes: +DILT1TAB12 PO; +OMEP-218 PO
== END ==
LOC: M WUC 14:00
PROVIDERS: ATTEND Internal Medicine
DX: I27.20 Pulmonary hypertension, unspecified (principal)

== ENCOUNTER → 2021-10-03 | Outpatient (REF) | payer OTHER ==
[~2021-10-03] MED LIST changes: +OMEP-173 PO; -OMEP-218 PO
[2021-10-04 18:23] LABS: CREATININE, URINE 21.3 MG/DL; MALB URINE SIEMENS < 5.0 MG/L; MAU/CREAT RATIO 23.4 MCG/MG (0.0-30.0)
== END ==
LOC: M LAB REF 17:17
PROVIDERS: ATTEND Internal Medicine Endocrinology, Diabetes & Metabolism
DX: E10.649 Type 1 diabetes mellitus with hypoglycemia without coma (principal)

== ENCOUNTER → 2021-11-29 | Outpatient (CLI) | payer OTHER ==
[2021-11-29 17:12] LABS: BLOOD UREA NITROGEN 9 MG/DL (7-18); CARBON DIOXIDE LEVEL 31 MEQ/L (21-32); CHLORIDE LEVEL 103 MEQ/L (98-107); CREATININE FOR GFR 0.51 MG/DL (0.55-1.30); GLOMERULAR FILTRATION RATE > 60.0 (>58); GLUCOSE, FASTING 71 MG/DL (70-100); POTASSIUM SERUM 4.5 MEQ/L (3.5-5.1); SODIUM LEVEL 136 MEQ/L (136-145)
== END ==
LOC: M LAB 16:07
PROVIDERS: ATTEND Internal Medicine
DX: E10.311 Type 1 diabetes mellitus with unspecified diabetic retinopathy with macular edema (principal); I10 Essential (primary) hypertension

== ENCOUNTER → 2021-12-02 | Outpatient (CLI) | payer OTHER ==
[~2021-12-02] MED LIST changes: +PROHANCE 279.3MG/ML 15ML VIAL ONE
== END ==
LOC: M PLAIMG 07:53
PROVIDERS: ATTEND Internal Medicine
DX: N60.02 Solitary cyst of left breast (principal); Z80.3 Family history of malignant neoplasm of breast
CPT/HCPCS: A9576; C8908

== ENCOUNTER → 2022-03-06 | Outpatient (CLI) | payer OTHER ==
[~2022-03-06] MED LIST changes: -PROHANCE 279.3MG/ML 15ML VIAL ONE
== END ==
LOC: M CARPUL 08:28
PROVIDERS: ATTEND Internal Medicine
DX: I27.20 Pulmonary hypertension, unspecified (principal)

== ENCOUNTER → 2022-04-10 | Outpatient (CLI) | payer OTHER | LOC: M WHC 14:21 | PROVIDERS: ATTEND Internal Medicine | DX: Z12.31 Encounter for screening mammogram for malignant neoplasm of breast (principal) ==

== ENCOUNTER → 2022-06-29 | Outpatient (REF) | payer OTHER ==
[2022-06-29 17:57] LABS: FOLLICLE STIMULATING HORMONE 116.2 mIU/mL; LUTEINIZING HORMONE 51.5 mIU/mL
== END ==
LOC: M LAB REF 16:11
PROVIDERS: ATTEND Internal Medicine
DX: N92.6 Irregular menstruation, unspecified (principal)

== ENCOUNTER → 2022-08-03 | Outpatient (CLI) | payer OTHER | LOC: M RAD 09:49 | DX: J84.9 Interstitial pulmonary disease, unspecified (principal) ==

== ENCOUNTER → 2022-08-22 | Outpatient (REF) | payer OTHER ==
[2022-08-23 20:14] LABS: MALB URINE SIEMENS < 5.0 MG/L; MAU/CREAT RATIO 31.2 MCG/MG (0.0-30.0)
== END ==
LOC: M LAB REF 17:13
PROVIDERS: ATTEND Internal Medicine Endocrinology, Diabetes & Metabolism
DX: E10.649 Type 1 diabetes mellitus with hypoglycemia without coma (principal)

== ENCOUNTER 2022-12-18 10:14 | Emergency (ER) | payer OTHER ==
[~2022-12-18] VITALS: Ht 152.4 cm; Wt 48.5 kg
[~2022-12-18 10:14] MED LIST changes: -INSUHUMDS; +INSUHUMDS SC
[2022-12-18 11:48] VITALS: BP 143/78
[2022-12-18] MEDS ORDERED: DILT30TA PO (12:21)
[2022-12-18] MEDS ORDERED: PHEN16.2 PO (12:21)
[2022-12-18] MEDS ORDERED: D 50CAP2 PO (12:21)
[2022-12-18] MEDS ORDERED: HOME MED LIST COMPLETE! XX SCH (12:30)
[2022-12-18] MEDS ORDERED: NIRMATRELVIR/RITONAVIR CO-PACK (EMERGENCY USE AUTH) PO SCH (21:00)
== END 2022-12-18 12:45 | disposition home or self-care (01) ==
LOC: M ED 10:14
DX: U07.1 COVID-19 (principal); E10.9 Type 1 diabetes mellitus without complications; M35.00 Sjogren syndrome, unspecified; J84.9 Interstitial pulmonary disease, unspecified; Z79.890 Hormone replacement therapy; Z79.899 Other long term (current) drug therapy; Z79.4 Long term (current) use of insulin

== ENCOUNTER → 2023-02-09 | Outpatient (CLI) | payer OTHER ==
[~2023-02-09] MED LIST changes: +D 50CAP2 PO; +DILT30TA PO; +PHEN16.2 PO
== END ==
LOC: M CARPUL 12:25
PROVIDERS: ATTEND Internal Medicine Pulmonary Disease
DX: J84.9 Interstitial pulmonary disease, unspecified (principal); I27.20 Pulmonary hypertension, unspecified

== ENCOUNTER → 2023-03-22 | Outpatient (CLI) | payer OTHER ==
[~2023-03-22] MED LIST changes: +PROHANCE 279.3MG/ML 5ML VIAL ONE
== END ==
LOC: M PLAIMG 09:35
PROVIDERS: ATTEND Internal Medicine
DX: Z80.3 Family history of malignant neoplasm of breast (principal)

== ENCOUNTER → 2023-04-09 | Outpatient (CLI) | payer OTHER ==
[~2023-04-09] MED LIST changes: -PROHANCE 279.3MG/ML 5ML VIAL ONE
[2023-04-09 17:33] LABS: BASO # 0.1 10^3/uL (0.0-0.2); BASO % 1.4 % (0.0-1.0); EOS # 0.3 10^3/uL (0.0-0.5); EOS % 3.4 % (0.0-3.0); HEMATOCRIT 38.7 % (36.0-47.0); HEMOGLOBIN 12.8 g/dl (12.0-15.5); LYMPH # 3.1 10^3/uL (1.5-5.0); LYMPH % 39.7 % (24.0-44.0); MEAN CORPUSCULAR HEMOGLOBIN 29.6 pg (27.0-33.0); MEAN CORPUSCULAR HGB CONC 33.1 g/dl (32.0-36.5); MEAN CORPUSCULAR VOLUME 89.6 fl (80.0-96.0); MONO # 0.9 10^3/uL (0.0-0.8); MONO % 11.6 % (2.0-8.0); NEUTROPHILS # 3.5 10^3/uL (1.5-8.5); NEUTROPHILS % 43.8 % (36.0-66.0); PLATELET COUNT, AUTOMATED 286 10^3/uL (150-450); RED BLOOD COUNT 4.32 10^6/uL (4.00-5.40); WHITE BLOOD COUNT 7.9 10^3/uL (4.0-10.0)
[2023-04-09 17:55] LABS: ALBUMIN 3.8 G/DL (3.2-5.2); ALKALINE PHOSPHATASE 69 U/L (46-116); ALT/SGPT 13 U/L (7.0-40); AST/SGOT 16 U/L (<34); BILIRUBIN,TOTAL 0.6 MG/DL (0.3-1.2); BLOOD UREA NITROGEN 12 MG/DL (9-23); CALCIUM LEVEL 9.5 MG/DL (8.5-10.1); CARBON DIOXIDE LEVEL 29 MMOL/L (20-31); CHLORIDE LEVEL 102 MMOL/L (98-107); CREATININE FOR GFR 0.52 MG/DL (0.55-1.30); GLOMERULAR FILTRATION RATE > 60.0 (>51); GLUCOSE, FASTING 94 MG/DL (60-100); MAGNESIUM LEVEL 1.7 MG/DL (1.8-2.4); POTASSIUM SERUM 4.1 MMOL/L (3.5-5.1); SODIUM LEVEL 134 MMOL/L (136-145); TOTAL PROTEIN 7.2 G/DL (5.7-8.2)
[2023-04-09 17:57] LABS: FREE T4 1.08 NG/DL (0.89-1.76); THYROID STIMULATING HORMONE 2.113 uIU/ML (0.55-4.78)
== END ==
LOC: M LAB 16:47
PROVIDERS: ATTEND Internal Medicine
DX: I10 Essential (primary) hypertension (principal); E83.42 Hypomagnesemia; E03.9 Hypothyroidism, unspecified

== ENCOUNTER 2023-06-12 20:52 | Emergency (ER) | payer OTHER ==
[~2023-06-12] VITALS: Ht 165.1 cm; Wt 47.5 kg
[2023-06-12] MEDS ORDERED: BENA25CA4 PO (21:00)
[2023-06-12] MEDS ORDERED: methylPREDNISolone 125MG 2ML VIAL IV ONE (22:25)
[2023-06-12] MEDS ORDERED: diphenhydrAMINE 50MG/ML VIAL IV ONE (22:25)
[2023-06-12] MEDS ORDERED: FAMOTIDINE 20MG/2ML VIAL IVP ONE (22:25)
[2023-06-12 22:39] LABS: BLOOD UREA NITROGEN 11 MG/DL (9-23); CALCIUM LEVEL 8.9 MG/DL (8.5-10.1); CARBON DIOXIDE LEVEL 28 MMOL/L (20-31); CHLORIDE LEVEL 97 MMOL/L (98-107); CREATININE FOR GFR 0.51 MG/DL (0.55-1.30); GLOMERULAR FILTRATION RATE > 60.0 (>51); GLUCOSE, FASTING 283 MG/DL (60-100); POTASSIUM SERUM 4.5 MMOL/L (3.5-5.1); SODIUM LEVEL 133 MMOL/L (136-145)
[2023-06-12 22:41] LABS: BASO # 0.1 10^3/uL (0.0-0.2); BASO % 1.6 % (0.0-1.0); EOS # 0.3 10^3/uL (0.0-0.5); EOS % 3.8 % (0.0-3.0); HEMATOCRIT 43.8 % (36.0-47.0); HEMOGLOBIN 14.6 g/dl (12.0-15.5); LYMPH % 38.5 % (24.0-44.0); MEAN CORPUSCULAR HEMOGLOBIN 29.6 pg (27.0-33.0); MEAN CORPUSCULAR HGB CONC 33.3 g/dl (32.0-36.5); MEAN CORPUSCULAR VOLUME 88.8 fl (80.0-96.0); MONO # 0.7 10^3/uL (0.0-0.8); MONO % 8.6 % (2.0-8.0); NEUTROPHILS # 3.6 10^3/uL (1.5-8.5); NEUTROPHILS % 47.2 % (36.0-66.0); PLATELET COUNT, AUTOMATED 318 10^3/uL (150-450); RED BLOOD COUNT 4.93 10^6/uL (4.00-5.40); WHITE BLOOD COUNT 7.7 10^3/uL (4.0-10.0)
[2023-06-12] MEDS ORDERED: guaiFENesin SYRUP 200MG 10ML UDC PO ONE (23:05)
[2023-06-12] MEDS ORDERED: EPIP0.3I2 IM (23:51)
[2023-06-13 00:15] VITALS: BP 149/84
[2023-06-13 00:45] VITALS: TEMP 97.4; O2SAT 99
== END 2023-06-13 00:56 | disposition home or self-care (01) ==
LOC: M ED 20:52
DX: T63.441A Toxic effect of venom of bees, accidental (unintentional), initial encounter (principal); E11.9 Type 2 diabetes mellitus without complications; I10 Essential (primary) hypertension; E78.5 Hyperlipidemia, unspecified; Z79.83 Long term (current) use of bisphosphonates; Z79.899 Other long term (current) drug therapy
CPT/HCPCS: 80048; 85025; 93041; 94760; 96374; 99285; J1200; J2930; S0028

== ENCOUNTER → 2023-09-25 | Outpatient (CLI) | payer OTHER ==
[~2023-09-25] MED LIST changes: +BENA25CA4 PO; +EPIP0.3I2 IM
== END ==
LOC: M WHC 15:11
PROVIDERS: ATTEND Internal Medicine
DX: Z12.31 Encounter for screening mammogram for malignant neoplasm of breast (principal)

== ENCOUNTER → 2024-02-01 | Outpatient (CLI) | payer OTHER | LOC: M PLAIMG 10:17 | PROVIDERS: ATTEND Internal Medicine Pulmonary Disease | DX: J84.9 Interstitial pulmonary disease, unspecified (principal) ==

== ENCOUNTER → 2024-06-03 | Outpatient (CLI) | payer OTHER ==
[~2024-06-03] MED LIST changes: +PROHANCE 279.3MG/ML 5ML VIAL ONE; +RAMI10CA64 PO; -RAMI1CAP26 PO; +ROSU5TAB40 PO; -ROSU5TAB5 PO
== END ==
LOC: M PLAIMG 09:49
PROVIDERS: ATTEND Internal Medicine
DX: Z80.3 Family history of malignant neoplasm of breast (principal)
CPT/HCPCS: A9576; C8908

== ENCOUNTER → 2024-12-24 | Outpatient (CLI) | payer OTHER ==
[~2024-12-24] MED LIST changes: -PROHANCE 279.3MG/ML 5ML VIAL ONE; -ROSU5TAB40 PO; +ROSU5TAB49 PO
== END ==
LOC: M WHC 16:04
PROVIDERS: ATTEND Internal Medicine
DX: Z12.31 Encounter for screening mammogram for malignant neoplasm of breast (principal)

== ENCOUNTER → 2025-02-26 | Outpatient (CLI) | payer OTHER | LOC: M PLAIMG 16:31 | PROVIDERS: ATTEND Internal Medicine | DX: R10.11 Right upper quadrant pain (principal) ==

== ENCOUNTER → 2025-06-04 | Outpatient (CLI) | payer OTHER ==
[~2025-06-04] MED LIST changes: +PROHANCE 279.3MG/ML 5ML VIAL ONE; +TURM1CAP7 PO; -TURM500C3 PO
== END ==
LOC: M PLAIMG 08:18
PROVIDERS: ATTEND Internal Medicine
DX: R92.30 Dense breasts, unspecified (principal); Z80.3 Family history of malignant neoplasm of breast
CPT/HCPCS: A9576; C8908